=== PATIENT | male | born 1960 | race Caucasian/White ===

== ENCOUNTER 2020-03-18 06:20 | Inpatient (IN) | payer BC ==
--- NOTE | 2020-03-18 07:05 | EDM.PDOC ---
ED HPI GENERAL MEDICAL PROBLEM - General Chief Complaint: Gastrointestinal Problem Stated Complaint: blood in stool Time Seen by Provider: 03/18/20 07:03 Source of Information: Reports: Patient History Limitations: Reports: No Limitations - History of Present Illness INITIAL COMMENTS - FREE TEXT/NARRATIVE: 59-year-old male presents to the ED with chief complaint of passing bright red blood per rectum x4 starting about 20 to 30 hours last evening. Associated diffuse lower abdominal cramping pain. No associated fever chills nausea or vomiting. Patient takes Aleve on a weekly basis but usually only a total of 4 tablets. Does not take aspirin daily. He does not drink alcohol. No past history of GI bleeding. No past history of known colonic polyps. No history of diverticulitis. States the passage of bright red blood per rectum with a bit of maroon color to it x4. Each time was at least a handful of blood. He is feeling lightheaded and dizzy after bowel movements. He states he just gave 2 pints of blood a week ago through blood donation. He does have heartburn and does use Prilosec on a as needed basis and occasional Tums or Rolaids. Its been no worse as of late. No history of previous abdominal surgery and states he had a colonoscopy done about 4-1/2 years ago before his left knee total replacement by Dr. Luna. No polyps were removed Onset: Sudden Onset Date: 03/17/20 Onset Time: 22:30 Duration: Hour(s):, Intermittent Location: Reports: Abdomen ( gastrointestinal hemorrhage.) Quality: Reports: Other (mild lower abdominal cramping pain. ) Severity: Moderate Improves with: Reports: None Worsens with: Reports: None Context: Reports: Other (spontaneous occurrence. ). Denies: Activity, Exercise, Lifting, Sick Contact, Trauma Associated Symptoms: Reports: Malaise, Weakness, Other (mild lightheaded with standing. ). 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 ) Abdominal Pain Score (Numeric/FACES): 2 - Related Data Allergies Allergy/AdvReac Type Severity Reaction Status Date / Time No Known Allergies Allergy Verified 03/18/20 06:42 Home Meds: Home Meds Naproxen Sodium [Aleve] 220 mg PO TID PRN 03/18/20 [History] Omeprazole Magnesium [Prilosec Otc] 20 mg PO ASDIRECTED PRN 03/18/20 [History] Past Medical History HEENT History: Reports: Impaired Vision Cardiovascular History: Reports: None Respiratory History: Reports: None Gastrointestinal History: Reports: GERD Genitourinary History: Reports: None Musculoskeletal History: Reports: Arthritis Neurological History: Reports: None Psychiatric History: Reports: None Endocrine/Metabolic History: Reports: None Hematologic History: Reports: None Immunologic History: Reports: None Oncologic (Cancer) History: Reports: None Dermatologic History: Reports: None - Infectious Disease History Infectious Disease History: Reports: Chicken Pox, Influenza - Past Surgical History Head Surgeries/Procedures: Reports: None HEENT Surgical History: Reports: Oral Surgery Musculoskeletal Surgical History: Reports: Knee Replacement Other Musculoskeletal Surgeries/Procedures:: Left knee replace. Right knee surgery many years ago Social & Family History - Family History Family Medical History: No Pertinent Family History Cardiac: Reports: [place] Respiratory: Reports: None GI: Reports: None : Reports: None Musculoskeletal: Reports: Arthritis Neurological: Reports: None Psychiatric: Reports: None Endocrine/Metabolic: Reports: Diabetes, type II Hematologic: Reports: None Immunologic: Reports: None Dermatologic: Reports: None Oncologic: Reports: None - Tobacco Use Tobacco Use Status *Q: Never Tobacco User - Caffeine Use Caffeine Use: Reports: Coffee - Recreational Drug Use Recreational Drug Use: No - Living Situation & Occupation Living situation: Reports: Occupation: Employed ED ROS GENERAL - Review of Systems Review Of Systems: See Below Constitutional: Reports: Weakness, Fatigue. Denies: Fever, Chills, Malaise, Decreased Appetite, Weight Loss HEENT: Reports: No Symptoms Respiratory: Reports: No Symptoms Cardiovascular: Reports: No Symptoms Endocrine: Reports: No Symptoms GI/Abdominal: Reports: Bloody Stool ( starting last pm. ), Other (occassional GERD). Denies: Constipation, Diarrhea : Reports: No Symptoms Musculoskeletal: Reports: Back Pain, Joint Pain (Rt knee at times. ) Skin: Reports: No Symptoms Neurological: Reports: Dizziness ( with standing since bleeding per rectum started. ) Psychiatric: Reports: No Symptoms Hematologic/Lymphatic: Reports: No Symptoms Immunologic: Reports: No Symptoms ED EXAM, GI/ABD - Physical Exam Exam: See Below Exam Limited By: No Limitations General Appearance: Alert, WD/WN, Anxious, Mild Distress, Other ( pallid in color. ) Eyes: Bilateral: Normal Appearance ( moderate bilateral blepharal pallor. ) Throat/Mouth: Normal Inspection, Normal Lips, Normal Oropharynx, Other (tongue is white in color. ) Head: Atraumatic, Normocephalic Neck: Normal Inspection, Supple, Non-Tender, Full Range of Motion. No: Lymphadenopathy (L), Lymphadenopathy (R) Respiratory/Chest: No Respiratory Distress, Lungs Clear, Normal Breath Sounds, No Accessory Muscle Use Cardiovascular: Normal Peripheral Pulses, Regular Rate, Rhythm, No Edema, No Gallop, No Murmur, No Rub GI/Abdominal Exam: Normal Bowel Sounds, Soft, Non-Tender, No Organomegaly, Tender, Other (No surgical scars). No: Guarding (Minimally tender left lower quadrant of the abdomen), Rigid, Rebound ( no rebound or guarding) (Male) Exam: No Hernia Rectal (Males) Exam: Bloody Stool Back Exam: Normal Inspection, Full Range of Motion. No: CVA Tenderness (L), CVA Tenderness (R) Extremities: Normal Inspection, Normal Range of Motion, Non-Tender Neurological: Oriented, CN II-XII Intact, Normal Cognition Psychiatric: Normal Affect, Normal Mood Skin Exam: Warm, Dry, Intact, Pallor. No: Normal Color #1 Interpretation EKG Date: 03/18/20 Time: 07:27 Rhythm: NSR Rate (Beats/Min): 67 [place]: Normal P-Wave: Present QRS: Other (Early R wave transition consider right ventricular hypertrophy versus septal hypertrophy pattern. Likely underlying left ventricular hypertrophy.) ST-T: Other (Diffuse early R wave transition) QT: Normal EKG Interpretation Comments: Borderline ECG Course - Vital Signs Last Recorded V/S: Last Vital Signs Temp 36.1 C 03/18/20 06:47 Pulse 70 03/18/20 06:47 Resp 12 03/18/20 06:47 BP 128/90 03/18/20 06:47 Pulse Ox 99 03/18/20 06:47 Orthostatic Blood Pressure [ 106/51 Standing] Orthostatic Blood Pressure [ 110/56 Sitting] Orthostatic Blood Pressure [ 105/53 Supine] - Orders/Labs/Meds Orders: Active Orders 24 hr Category Date Time Status Orthostatic Vital Signs [RC] ASDIRECTED Care 03/18/20 07:03 Active H PYLORI STOOL ANTIGEN [MREF] Stat Lab 03/18/20 07:38 Ordered PACKED CELLS [RED BLOOD CELLS LP] [BBK] Stat Lab 03/18/20 06:47 Results TYPE AND SCREEN [BBK] Stat Lab 03/18/20 06:47 Results Dextrose 5%-0.9% NaCl [Dextrose 5%-Normal Saline] 1,000 Med 03/18/20 08:45 Active ml IV ASDIRECTED Sodium Chloride 0.9% [Normal Saline] 1,000 ml Med 03/18/20 07:15 Active IV ASDIRECTED Medication Orders Sodium Chloride (Normal Saline) 1,000 mls @ 999 mls/hr IV ASDIRECTED KAYLEIGH Last Admin: 03/18/20 07:23 Dose: 999 mls/hr Documented by: BELTRAN Dextrose/Sodium Chloride (Dextrose 5%-Normal Saline) 1,000 mls @ 150 mls/hr IV ASDIRECTED KAYLEIGH Last Admin: 03/18/20 08:49 Dose: 150 mls/hr Documented by: BELTRAN Labs: Laboratory Tests 03/18/20 03/18/20 03/18/20 Range/Units 06:47 06:47 06:47 WBC 8.06 (4.23-9.07) K/mm3 RBC 3.15 L (4.63-6.08) M/mm3 Hgb 9.4 L (13.7-17.5) gm/dl Hct 28.7 L (40.1-51.0) % MCV 91.1 (79.0-92.2) fl MCH 29.8 (25.7-32.2) pg MCHC 32.8 (32.2-35.5) g/dl RDW Std Deviation 42.2 (35.1-43.9) fL Plt Count 312 (163-337) K/mm3 MPV 11.0 (9.4-12.3) fl Neut % (Auto) 87.0 H (34.0-67.9) % Lymph % (Auto) 5.7 L (21.8-53.1) % [place] % (Auto) 5.5 (5.3-12.2) % Eos % (Auto) 1.4 (0.8-7.0) Baso % (Auto) 0.4 (0.1-1.2) % Neut # (Auto) 7.02 H (1.78-5.38) K/mm3 Lymph # (Auto) 0.46 L (1.32-3.57) K/mm3 [place] # (Auto) 0.44 (0.30-0.82) K/mm3 Eos # (Auto) 0.11 (0.04-0.54) K/mm3 Baso # (Auto) 0.03 (0.01-0.08) K/mm3 Manual Slide Review Abnormal smear PT 10.3 (9.7-12.0) SECONDS INR 0.96 APTT < 20.0 L (21.7-31.4) SECONDS Sodium (136-145) mEq/L Potassium (3.5-5.1) mEq/L Chloride (98-107) mEq/L Carbon Dioxide (21-32) mEq/L Anion Gap (5-15) BUN (7-18) mg/dL Creatinine (0.7-1.3) mg/dL Est Cr Clr Drug Dosing mL/min Estimated GFR (MDRD) (>60) mL/min BUN/Creatinine Ratio (14-18) Glucose (74-106) mg/dL Calcium (8.5-10.1) mg/dL Magnesium (1.8-2.4) mg/dl Total Bilirubin (0.2-1.0) mg/dL AST (15-37) U/L ALT (16-63) U/L Alkaline Phosphatase (46-116) U/L C-Reactive Protein (<1.0) mg/dL Total Protein (6.4-8.2) g/dl Albumin (3.4-5.0) g/dl Globulin gm/dL Albumin/Globulin Ratio (1-2) SARS-CoV-2 RNA (PILAR) (NEGATIVE) Blood Type O POSITIVE Gel Antibody Screen Negative Crossmatch See Detail 03/18/20 03/18/20 03/18/20 Range/Units 06:47 06:47 08:25 WBC (4.23-9.07) K/mm3 RBC (4.63-6.08) M/mm3 Hgb (13.7-17.5) gm/dl Hct (40.1-51.0) % MCV (79.0-92.2) fl MCH (25.7-32.2) pg MCHC (32.2-35.5) g/dl RDW Std Deviation (35.1-43.9) fL Plt Count (163-337) K/mm3 MPV (9.4-12.3) fl Neut % (Auto) (34.0-67.9) % Lymph % (Auto) (21.8-53.1) % [place] % (Auto) (5.3-12.2) % Eos % (Auto) (0.8-7.0) Baso % (Auto) (0.1-1.2) % Neut # (Auto) (1.78-5.38) K/mm3 Lymph # (Auto) (1.32-3.57) K/mm3 [place] # (Auto) (0.30-0.82) K/mm3 Eos # (Auto) (0.04-0.54) K/mm3 Baso # (Auto) (0.01-0.08) K/mm3 Manual Slide Review PT (9.7-12.0) SECONDS INR APTT (21.7-31.4) SECONDS Sodium 138 (136-145) mEq/L Potassium 4.2 (3.5-5.1) mEq/L Chloride 106 (98-107) mEq/L Carbon Dioxide 24 (21-32) mEq/L Anion Gap 12.2 (5-15) BUN 20 H (7-18) mg/dL Creatinine 1.2 (0.7-1.3) mg/dL Est Cr Clr Drug Dosing 67.10 mL/min Estimated GFR (MDRD) > 60 (>60) mL/min BUN/Creatinine Ratio 16.7 (14-18) Glucose 147 H (74-106) mg/dL Calcium 8.2 L (8.5-10.1) mg/dL Magnesium 1.7 L (1.8-2.4) mg/dl Total Bilirubin 0.2 (0.2-1.0) mg/dL AST 16 (15-37) U/L ALT 17 (16-63) U/L Alkaline Phosphatase 67 (46-116) U/L C-Reactive Protein 0.5 (<1.0) mg/dL Total Protein 6.3 L (6.4-8.2) g/dl Albumin 3.3 L (3.4-5.0) g/dl Globulin 3.0 gm/dL Albumin/Globulin Ratio 1.1 (1-2) SARS-CoV-2 RNA (PILAR) Positive H (NEGATIVE) Blood Type Gel Antibody Screen Crossmatch Meds: Medications Generic Name Dose Route Start Last Admin Trade Name Jamshid PRN Reason Stop Dose Admin Sodium Chloride 1,000 mls @ 999 mls/hr 03/18/20 07:15 03/18/20 07:23 Normal Saline IV 999 mls/hr ASDIRECTED KAYLEIGH Administration Dextrose/Sodium Chloride 1,000 mls @ 150 mls/hr 03/18/20 08:45 03/18/20 08:49 Dextrose 5%-Normal Saline IV 150 mls/hr ASDIRECTED KAYLEIGH Administration - Radiology Interpretation Free Text/Narrative:: 59-year-old male presents to the ED with spontaneous gastrointestinal hemorrhage of unclear origin. He states about 20 to 30 hours last evening he had diarrhea stool which contained a large amount of blood when he looked in the toilet. Large amount of blood with wiping. Overnight he is gone 3 more times with associated mild lower abdominal cramping pain also but bowel movements are pure blood and contained at least a handful each time. Blood is slightly maroon in color on the last bowel movement. History suggest likely coming from lower GI source. Has a history of GERD for which he takes Prilosec on a as needed basis. Aleve up to 4 5 tablets/week. Does not take aspirin or any other anticoagulants on a daily basis. No past history of GI bleeding. On assessment the patient is quite pallid in appearance with pale conjunctiva and tongue. It appears that he is going to need blood transfusion. He will be crossmatched for 2 units of packed RBCs. He has no contraindication for alevism reasons not to receive blood transfusion. - Re-Assessments/Exams Free Text/Narrative Re-Assessment/Exam: 03/18/20 08:52 chest x-ray is unremarkable with no consolidation no pleural effusion no pneumothorax no cardiomegaly. 03/18/20 08:53 Hematology reveals a normal white count at 8.06. There is a left shift with 87% neutrophils. Hemoglobin is 9.4 present with hematocrit of 28.7. MCV is 91.1. Platelet count 312,000 PT is 10.3 with an INR of 0.96. PTT is less than 20. Sodium 138 with a potassium of 4.2 chloride 106 with a bicarb of 24. Anion gap is 12.2 BUN is 20. Creatinine is 1.2 GFR is greater than 60. Glucose 147 with a calcium of 8.2 magnesium slightly low at 1.7. Liver function is normal.C-reactive protein 0.5 total protein 6.3 with an albumin fraction of 3.3. Will look for on-call surgeon for consultation as the patient needs to be admitted to hospital. 03/18/20 09:09 [address] have spoken with [address] Lu--call surgeon and he advised admitting the patient at this time. He will stay n.p.o. and on IV fluids and monitored while in hospital. Patient appraised of his laboratory findings at this time and no need for rushing into blood transfusion at this time. He is likely to drop his hemoglobin over the next several hours. He has had no further bloody stools since entering the hospital. 03/18/20 09:36 The patient is surprised he came back Covid 19+. He has 2 daughters who are in high school that are at home and are being homeschooled. No one has been symptomatic. 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 He has absolutely no symptoms other than perhaps very minimal cold symptoms. Departure - Departure Time of Disposition: 10:25 Disposition: Admitted As Inpatient 67 Condition: Fair Clinical Impression: COVID-19 determined by clinical diagnostic criteria Gastrointestinal hemorrhage Qualifiers: GI bleed type/associated pathology: unspecified gastrointestinal hemorrhage type Qualified Code(s): K92.2 - Gastrointestinal hemorrhage, unspecified - Discharge Information *PRESCRIPTION DRUG MONITORING PROGRAM REVIEWED*: Not Applicable *COPY OF PRESCRIPTION DRUG MONITORING REPORT IN PATIENT SHAILA: Not Applicable Sepsis Event Note (ED) - Evaluation Sepsis Screening Result: No Definite Risk - Focused Exam Vital Signs: Vital Signs Temp Pulse Resp BP Pulse Ox 03/18/20 06:47 36.1 C 70 12 128/90 99 - My Orders Last 24 Hours: My Active Orders 03/18/20 06:47 PACKED CELLS [RED BLOOD CELLS LP] [BBK] Stat TYPE AND SCREEN [BBK] Stat 03/18/20 07:03 Orthostatic Vital Signs [RC] ASDIRECTED 03/18/20 07:15 Sodium Chloride 0.9% [Normal Saline] 1,000 ml IV ASDIRECTED 03/18/20 07:38 H PYLORI STOOL ANTIGEN [MREF] Stat 03/18/20 08:45 Dextrose 5%-0.9% NaCl [Dextrose 5%-Normal Saline] 1,000 ml IV ASDIRECTED - Assessment/Plan Last 24 Hours: My Active Orders 03/18/20 06:47 PACKED CELLS [RED BLOOD CELLS LP] [BBK] Stat TYPE AND SCREEN [BBK] Stat 03/18/20 07:03 Orthostatic Vital Signs [RC] ASDIRECTED 03/18/20 07:15 Sodium Chloride 0.9% [Normal Saline] 1,000 ml IV ASDIRECTED 03/18/20 07:38 H PYLORI STOOL ANTIGEN [MREF] Stat 03/18/20 08:45 Dextrose 5%-0.9% NaCl [Dextrose 5%-Normal Saline] 1,000 ml IV ASDIRECTED
[2020-03-18] MEDS ORDERED: Sodium Chloride 0.9% 1,000 ML IV SCH (07:15)
[2020-03-18] MEDS ORDERED: Dextrose 5%-0.9% NaCl 1,000 ML IV SCH (08:45)
--- NOTE | 2020-03-18 08:45 | CR ---
PROCEDURE INFORMATION: Exam: XR Chest, 1 View Exam date and time: 03/18/2020 6:59 AM Age: 59 years old Clinical indication: Dyspnea; Additional info: GI hemorrhage, unspecified if questioning or confirmed hemorrhage TECHNIQUE: Imaging protocol: XR of the chest Views: 1 view. COMPARISON: No relevant prior studies available. FINDINGS: Lungs: Unremarkable. No consolidation. Pleural space: Unremarkable. No pleural effusion. No pneumothorax. Heart/Mediastinum: Unremarkable. No cardiomegaly. Bones/joints: Unremarkable. IMPRESSION: Normal chest. Thank you for allowing us to participate in the care of your patient. Dictated and Authenticated by: Rupal Zuniga MD 03/18/2020 9:36 AM Central Time ([place] & [place]) RASHIDA
--- NOTE | 2020-03-18 11:48 | PCM.HP.2 ---
H&P History of Present Illness - General Date of Service: 03/18/20 Admit Problem/Dx: Admission Diagnosis/Problem Admission Diagnosis/Problem Gastrointestinal hemorrhage Source of Information: Patient History Limitations: Reports: No Limitations - History of Present Illness Initial Comments - Free Text/Narative: Patient has a history of GERD. He noticed bright red blood per rectum last night at 2030. He had 4 episodes, 4th episode was early this AM. He became transiently lightheaded this AM prior to coming to the ED. No prior episodes. Hematochezia was associated with mild lower abdomen cramps but no pain. He has history of hemorrhoids and has noticed blood with wiping sometimes but nothing like this. Last colonoscopy was 4.5 yrs ago and was normal. Weight is stable. No other issues. In the ED Vitals were stable. Patient was pale. The Ed discussed with me and we admitted the patient for monitoring. Onset of Symptoms: Reports: Sudden Duration of Symptoms: Reports: Day(s): (1), Intermittent Location: Reports: Abdomen Quality: Reports: Other (cramp) Severity: Mild Improves with: Reports: None Worsens with: Reports: None Associated Symptoms: Reports: Other (hematochezia) Abdominal Pain Score (Numeric/FACES): 2 - Related Data Allergies/Adverse Reactions: Allergies Allergy/AdvReac Type Severity Reaction Status Date / Time No Known Allergies Allergy Verified 03/18/20 06:42 Home Medications: Home Meds Naproxen Sodium [Aleve] 220 mg PO TID PRN 03/18/20 [History] Omeprazole Magnesium [Prilosec Otc] 20 mg PO ASDIRECTED PRN 03/18/20 [History] Past Medical History HEENT History: Reports: Impaired Vision Cardiovascular History: Reports: None Respiratory History: Reports: None Gastrointestinal History: Reports: GERD Genitourinary History: Reports: None Musculoskeletal History: Reports: Arthritis Neurological History: Reports: None Psychiatric History: Reports: None Endocrine/Metabolic History: Reports: None Hematologic History: Reports: None Immunologic History: Reports: None Oncologic (Cancer) History: Reports: None Dermatologic History: Reports: None - Infectious Disease History Infectious Disease History: Reports: Chicken Pox, Influenza - Past Surgical History Head Surgeries/Procedures: Reports: None HEENT Surgical History: Reports: Oral Surgery Musculoskeletal Surgical History: Reports: Knee Replacement Other Musculoskeletal Surgeries/Procedures:: Left knee replace. Right knee surgery many years ago Social & Family History - Family History Family Medical History: No Pertinent Family History Cardiac: Reports: [place] Respiratory: Reports: None GI: Reports: None : Reports: None Musculoskeletal: Reports: Arthritis Neurological: Reports: None Psychiatric: Reports: None Endocrine/Metabolic: Reports: Diabetes, type II Hematologic: Reports: None Immunologic: Reports: None Dermatologic: Reports: None Oncologic: Reports: None - Tobacco Use Tobacco Use Status *Q: Former Tobacco User Years of Tobacco use: 20 Used Tobacco, but Quit: Yes Month/Year Tobacco Last Used: 20 Second Hand Smoke Exposure: No - Caffeine Use Caffeine Use: Reports: Coffee - Alcohol Use Days Per Week of Alcohol Use: 1 Number of Drinks Per Day: 1 Total Drinks Per Week: 1 Date of Last Drink: 03/04/20 Time of Last Drink: 19:00 - Recreational Drug Use Recreational Drug Use: No - Living Situation & Occupation Living situation: Reports: Occupation: Employed H&P Review of Systems - Review of Systems: Review Of Systems: See Below General: Reports: No Symptoms HEENT: Reports: No Symptoms Pulmonary: Reports: No Symptoms Cardiovascular: Reports: No Symptoms Gastrointestinal: Reports: Hematochezia Genitourinary: Reports: No Symptoms Musculoskeletal: Reports: No Symptoms Skin: Reports: No Symptoms Psychiatric: Reports: No Symptoms Neurological: Reports: No Symptoms Exam - Exam Exam: See Below - Vital Signs Vital Signs: Last Vital Signs Temp 99.0 F 03/18/20 10:54 Pulse 78 03/18/20 10:54 Resp 19 03/18/20 10:54 BP 124/90 03/18/20 10:54 Pulse Ox 100 03/18/20 10:54 Orthostatic Blood Pressure [ 106/51 Standing] Orthostatic Blood Pressure [ 110/56 Sitting] Orthostatic Blood Pressure [ 105/53 Supine] Weight: 81.221 kg - Exam General: Alert, Oriented, Cooperative Neck: Supple, Trachea Midline Lungs: Clear to Auscultation, Normal Respiratory Effort Cardiovascular: Regular Rate, Regular Rhythm, Normal S1, Normal S2 GI/Abdominal Exam: Soft, Non-Tender, No Organomegaly, No Distention, No Mass - Patient Data Lab Results Last 24 hrs: Laboratory Results - last 24 hr 03/18/20 03/18/20 03/18/20 Range/Units 06:47 06:47 06:47 WBC 8.06 (4.23-9.07) K/mm3 RBC 3.15 L (4.63-6.08) M/mm3 Hgb 9.4 L (13.7-17.5) gm/dl Hct 28.7 L (40.1-51.0) % MCV 91.1 (79.0-92.2) fl MCH 29.8 (25.7-32.2) pg MCHC 32.8 (32.2-35.5) g/dl RDW Std Deviation 42.2 (35.1-43.9) fL Plt Count 312 (163-337) K/mm3 MPV 11.0 (9.4-12.3) fl Neut % (Auto) 87.0 H (34.0-67.9) % Lymph % (Auto) 5.7 L (21.8-53.1) % [place] % (Auto) 5.5 (5.3-12.2) % Eos % (Auto) 1.4 (0.8-7.0) Baso % (Auto) 0.4 (0.1-1.2) % Neut # (Auto) 7.02 H (1.78-5.38) K/mm3 Lymph # (Auto) 0.46 L (1.32-3.57) K/mm3 [place] # (Auto) 0.44 (0.30-0.82) K/mm3 Eos # (Auto) 0.11 (0.04-0.54) K/mm3 Baso # (Auto) 0.03 (0.01-0.08) K/mm3 Manual Slide Review Abnormal smear PT 10.3 (9.7-12.0) SECONDS INR 0.96 APTT < 20.0 L (21.7-31.4) SECONDS Sodium (136-145) mEq/L Potassium (3.5-5.1) mEq/L Chloride (98-107) mEq/L Carbon Dioxide (21-32) mEq/L Anion Gap (5-15) BUN (7-18) mg/dL Creatinine (0.7-1.3) mg/dL Est Cr Clr Drug Dosing mL/min Estimated GFR (MDRD) (>60) mL/min BUN/Creatinine Ratio (14-18) Glucose (74-106) mg/dL Calcium (8.5-10.1) mg/dL Magnesium (1.8-2.4) mg/dl Total Bilirubin (0.2-1.0) mg/dL AST (15-37) U/L ALT (16-63) U/L Alkaline Phosphatase (46-116) U/L C-Reactive Protein (<1.0) mg/dL Total Protein (6.4-8.2) g/dl Albumin (3.4-5.0) g/dl Globulin gm/dL Albumin/Globulin Ratio (1-2) SARS-CoV-2 RNA (PILAR) (NEGATIVE) Blood Type O POSITIVE Gel Antibody Screen Negative Crossmatch See Detail 03/18/20 03/18/20 03/18/20 Range/Units 06:47 06:47 08:25 WBC (4.23-9.07) K/mm3 RBC (4.63-6.08) M/mm3 Hgb (13.7-17.5) gm/dl Hct (40.1-51.0) % MCV (79.0-92.2) fl MCH (25.7-32.2) pg MCHC (32.2-35.5) g/dl RDW Std Deviation (35.1-43.9) fL Plt Count (163-337) K/mm3 MPV (9.4-12.3) fl Neut % (Auto) (34.0-67.9) % Lymph % (Auto) (21.8-53.1) % [place] % (Auto) (5.3-12.2) % Eos % (Auto) (0.8-7.0) Baso % (Auto) (0.1-1.2) % Neut # (Auto) (1.78-5.38) K/mm3 Lymph # (Auto) (1.32-3.57) K/mm3 [place] # (Auto) (0.30-0.82) K/mm3 Eos # (Auto) (0.04-0.54) K/mm3 Baso # (Auto) (0.01-0.08) K/mm3 Manual Slide Review PT (9.7-12.0) SECONDS INR APTT (21.7-31.4) SECONDS Sodium 138 (136-145) mEq/L Potassium 4.2 (3.5-5.1) mEq/L Chloride 106 (98-107) mEq/L Carbon Dioxide 24 (21-32) mEq/L Anion Gap 12.2 (5-15) BUN 20 H (7-18) mg/dL Creatinine 1.2 (0.7-1.3) mg/dL Est Cr Clr Drug Dosing 67.10 mL/min Estimated GFR (MDRD) > 60 (>60) mL/min BUN/Creatinine Ratio 16.7 (14-18) Glucose 147 H (74-106) mg/dL Calcium 8.2 L (8.5-10.1) mg/dL Magnesium 1.7 L (1.8-2.4) mg/dl Total Bilirubin 0.2 (0.2-1.0) mg/dL AST 16 (15-37) U/L ALT 17 (16-63) U/L Alkaline Phosphatase 67 (46-116) U/L C-Reactive Protein 0.5 (<1.0) mg/dL Total Protein 6.3 L (6.4-8.2) g/dl Albumin 3.3 L (3.4-5.0) g/dl Globulin 3.0 gm/dL Albumin/Globulin Ratio 1.1 (1-2) SARS-CoV-2 RNA (PILAR) Positive H (NEGATIVE) Blood Type Gel Antibody Screen Crossmatch Result Diagrams: 03/18/20 06:47 03/18/20 06:47 Sepsis Event Note - Evaluation Sepsis Screening Result: No Definite Risk - Focused Exam Vital Signs: Vital Signs Temp Temp Pulse Pulse Resp BP BP 03/18/20 10:54 99.0 F 78 19 124/90 03/18/20 06:47 97.0 F 70 12 128/90 Pulse Ox 03/18/20 10:54 100 03/18/20 06:47 99 Problem List Initiated/Reviewed/Updated: No Orders Last 24hrs: Active Orders 24 hr Category Date Time Status Admission Status [Patient Status] [ADT] Routine ADT 03/18/20 09:34 Active Orthostatic Vital Signs [RC] ASDIRECTED Care 03/18/20 07:03 Active H PYLORI STOOL ANTIGEN [MREF] Stat Lab 03/18/20 07:38 Ordered PACKED CELLS [RED BLOOD CELLS LP] [BBK] Stat Lab 03/18/20 06:47 Results TYPE AND SCREEN [BBK] Stat Lab 03/18/20 06:47 Results Dextrose 5%-0.9% NaCl [Dextrose 5%-Normal Saline] 1,000 Med 03/18/20 08:45 Active ml IV ASDIRECTED Sodium Chloride 0.9% [Normal Saline] 1,000 ml Med 03/18/20 07:15 Active IV ASDIRECTED Medication Orders Sodium Chloride (Normal Saline) 1,000 mls @ 999 mls/hr IV ASDIRECTED [facility]AYLE[facility] Last Admin: 03/18/20 07:23 Dose: 999 mls/hr Documented by: BELTRAN Dextrose/Sodium Chloride (Dextrose 5%-Normal Saline) 1,000 mls @ 150 mls/hr IV ASDIRECTED [facility] Last Admin: 03/18/20 08:49 Dose: 150 mls/hr Documented by: BELTRAN Assessment/Plan Comment:: Patient has hematochezia. Vitals are stable. - Ok to have ice chips. - IVF - Q6H H/H - NPO at Midnight - Prep today with Golitely - Plan for EGD/Colonoscopy, possible hemorrhoid banding tomorrow 03/19/2020 at 0800. We discussed risks, benefits and alternatives for the procedure. Patient is COvid-19 positive but asymptomatic. Precautions will be taken.
[2020-03-18] MEDS ORDERED: Ondansetron 4 MG/2 ML SDV IV PRN (11:49)
[2020-03-18] MEDS ORDERED: Pantoprazole 40 MG in Sodium Chloride 0.9% 100 ML IV SCH (12:00)
[2020-03-18] MEDS: Lactated Ringers 1,000 ML IV SCH ×2 (12:35→21:03)
[2020-03-18] MEDS: Pantoprazole 40 MG Vial IV SCH ×2 (12:39→21:04)
[2020-03-18] MEDS ORDERED: Polyethylene Glycol/Electrolytes 4,000 ML Bottle PO ONE (17:00)
[2020-03-19] MEDS: Lactated Ringers 1,000 ML IV SCH ×2 (05:15→11:31)
[2020-03-19] MEDS ORDERED: Propofol 200 MG/20 ML SDV ONE ×2 (07:37→08:50)
[2020-03-19] MEDS ORDERED: fentaNYL 100 MCG/2 ML SDV ONE (07:37)
[2020-03-19] MEDS ORDERED: Lidocaine 1% 4 ML ONE (07:40)
--- NOTE | 2020-03-19 08:38 | PCM.PREANE ---
Preanesthetic Assessment - Procedure Proposed Procedure: EGD and Colonoscopy - Anesthesia/Transfusion/Family Hx Anesthesia History: Prior Anesthesia Without Reaction Transfusion History: No Prior Transfusion(s) - Review of Systems General: No Symptoms Pulmonary: No Symptoms Cardiovascular: No Symptoms Gastrointestinal: No Symptoms Neurological: No Symptoms Other: Reports: None - Physical Assessment NPO Status Date: 03/18/20 NPO Status Time: 02:30 Vital Signs: Last Vital Signs Temp 100.0 F 03/19/20 05:17 Pulse 87 03/19/20 05:17 Resp 16 03/19/20 05:17 BP 147/72 H 03/19/20 05:17 Pulse Ox 95 03/19/20 05:17 Orthostatic Blood Pressure [ 106/51 Standing] Orthostatic Blood Pressure [ 110/56 Sitting] Orthostatic Blood Pressure [ 105/53 Supine] Height: 1.7 m Weight: 81.284 kg ASA Class: 2 Mental Status: Alert & Oriented x3 Airway Class: Mallampati = 3 Dentition: Reports: Normal Dentition Thyro-Mental Finger Breadths: 3 Mouth Opening Finger Breadths: 3 ROM/Head Extension: Full Lungs: Clear to Auscultation, Normal Respiratory Effort Cardiovascular: Regular Rate, Regular Rhythm - Lab Values: Laboratory Last Values WBC 3.24 K/mm3 (4.23-9.07) L 03/19/20 05:33 RBC 2.57 M/mm3 (4.63-6.08) L 03/19/20 05:33 Hgb 7.8 gm/dl (13.7-17.5) L 03/19/20 05:33 Hct 23.5 % (40.1-51.0) L 03/19/20 05:33 MCV 91.4 fl (79.0-92.2) 03/19/20 05:33 MCH 30.4 pg (25.7-32.2) 03/19/20 05:33 MCHC 33.2 g/dl (32.2-35.5) 03/19/20 05:33 RDW Std Deviation 43.0 fL (35.1-43.9) 03/19/20 05:33 Plt Count 211 K/mm3 (163-337) D 03/19/20 05:33 MPV 11.8 fl (9.4-12.3) 03/19/20 05:33 Neut % (Auto) 87.0 % (34.0-67.9) H 03/18/20 06:47 Lymph % (Auto) 5.7 % (21.8-53.1) L 03/18/20 06:47 [place] % (Auto) 5.5 % (5.3-12.2) 03/18/20 06:47 Eos % (Auto) 1.4 (0.8-7.0) 03/18/20 06:47 Baso % (Auto) 0.4 % (0.1-1.2) 03/18/20 06:47 Neut # (Auto) 7.02 K/mm3 (1.78-5.38) H 03/18/20 06:47 Lymph # (Auto) 0.46 K/mm3 (1.32-3.57) L 03/18/20 06:47 [place] # (Auto) 0.44 K/mm3 (0.30-0.82) 03/18/20 06:47 Eos # (Auto) 0.11 K/mm3 (0.04-0.54) 03/18/20 06:47 Baso # (Auto) 0.03 K/mm3 (0.01-0.08) 03/18/20 06:47 Manual Slide Review Abnormal smear 03/18/20 06:47 PT 10.3 SECONDS (9.7-12.0) 03/18/20 06:47 INR 0.96 03/18/20 06:47 APTT < 20.0 SECONDS (21.7-31.4) L 03/18/20 06:47 Sodium 138 mEq/L (136-145) 03/18/20 06:47 Potassium 4.2 mEq/L (3.5-5.1) 03/18/20 06:47 Chloride 106 mEq/L (98-107) 03/18/20 06:47 Carbon Dioxide 24 mEq/L (21-32) 03/18/20 06:47 Anion Gap 12.2 (5-15) 03/18/20 06:47 BUN 20 mg/dL (7-18) H 03/18/20 06:47 Creatinine 1.2 mg/dL (0.7-1.3) 03/18/20 06:47 Est Cr Clr Drug Dosing 67.10 mL/min 03/18/20 06:47 Estimated GFR (MDRD) > 60 mL/min (>60) 03/18/20 06:47 BUN/Creatinine Ratio 16.7 (14-18) 03/18/20 06:47 Glucose 147 mg/dL (74-106) H 03/18/20 06:47 Calcium 8.2 mg/dL (8.5-10.1) L 03/18/20 06:47 Magnesium 1.7 mg/dl (1.8-2.4) L 03/18/20 06:47 Total Bilirubin 0.2 mg/dL (0.2-1.0) 03/18/20 06:47 AST 16 U/L (15-37) 03/18/20 06:47 ALT 17 U/L (16-63) 03/18/20 06:47 Alkaline Phosphatase 67 U/L (46-116) 03/18/20 06:47 C-Reactive Protein 0.5 mg/dL (<1.0) 03/18/20 06:47 Total Protein 6.3 g/dl (6.4-8.2) L 03/18/20 06:47 Albumin 3.3 g/dl (3.4-5.0) L 03/18/20 06:47 Globulin 3.0 gm/dL 03/18/20 06:47 Albumin/Globulin Ratio 1.1 (1-2) 03/18/20 06:47 SARS-CoV-2 RNA (PILAR) Positive (NEGATIVE) H 03/18/20 08:25 Blood Type O POSITIVE 03/18/20 06:47 Gel Antibody Screen Negative 03/18/20 06:47 Crossmatch See Detail 03/18/20 06:47 - Allergies Allergies/Adverse Reactions: Allergies Allergy/AdvReac Type Severity Reaction Status Date / Time No Known Allergies Allergy Verified 03/18/20 06:42 - Acknowledgements Anesthesia Type Planned: MAC Pt an Appropriate Candidate for the Planned Anesthesia: Yes Alternatives and Risks of Anesthesia Discussed w Pt/Guardian: Yes Pt/Guardian Understands and Agrees with Anesthesia Plan: Yes PreAnesthesia Questionnaire HEENT History: Reports: None Cardiovascular History: Reports: None Respiratory History: Reports: None Gastrointestinal History: Reports: GERD Genitourinary History: Reports: None Musculoskeletal History: Reports: Arthritis Neurological History: Reports: None Psychiatric History: Reports: None Endocrine/Metabolic History: Reports: None Hematologic History: Reports: None Immunologic History: Reports: None Oncologic (Cancer) History: Reports: None Dermatologic History: Reports: None - Infectious Disease History Infectious Disease History: Reports: Chicken Pox, Influenza - Past Surgical History Head Surgeries/Procedures: Reports: None HEENT Surgical History: Reports: Oral Surgery Musculoskeletal Surgical History: Reports: Knee Replacement Other Musculoskeletal Surgeries/Procedures:: Left knee replace. Right knee surgery many years ago - SUBSTANCE USE Tobacco Use Status *Q: Former Tobacco User Tobacco Use Within Last Twelve Months: No Second Hand Smoke Exposure: No Days Per Week of Alcohol Use: 1 Number of Drinks Per Day: 1 Total Drinks Per Week: 1 Date of Last Drink: 03/04/20 Time of Last Drink: 19:00 Recreational Drug Use History: No - HOME MEDS Home Medications: Home Meds Naproxen Sodium [Aleve] 220 mg PO TID PRN 03/18/20 [History] Omeprazole Magnesium [Prilosec Otc] 20 mg PO ASDIRECTED PRN 03/18/20 [History] - CURRENT (IN HOUSE) MEDS Current Meds: Current Medications Sodium Chloride (Normal Saline) 1,000 mls @ 999 mls/hr IV ASDIRECTED [facility] Last Admin: 03/18/20 07:23 Dose: 999 mls/hr Documented by: Lactated Ringer's (Ringers, Lactated) 1,000 mls @ 125 mls/hr IV ASDIRECTED [facility] Last Admin: 03/19/20 05:15 Dose: 125 mls/hr Documented by: Ondansetron HCl (Zofran) 4 mg IV Q4H PRN PRN Reason: Nausea/Vomiting Pantoprazole Sodium (Protonix Iv) 40 mg IV BID [facility] Last Admin: 03/18/20 21:04 Dose: 40 mg Documented by: Discontinued Medications Fentanyl (Sublimaze) Confirm Administered Dose 100 mcg .ROUTE .STK-MED ONE Stop: 03/19/20 07:38 Dextrose/Sodium Chloride (Dextrose 5%-Normal Saline) 1,000 mls @ 150 mls/hr IV ASDIRECTED [facility] Last Admin: 03/18/20 08:49 Dose: 150 mls/hr Documented by: Pantoprazole Sodium 40 mg/ (Sodium Chloride) 100 mls @ 200 mls/hr IV BID [facility] Last Admin: 03/18/20 15:19 Dose: Not Given Documented by: Lidocaine HCl (Xylocaine-Mpf 1%) Confirm Administered Dose 4 mls @ as directed .ROUTE .STK-MED ONE Stop: 03/19/20 07:41 Polyethylene Glycol/Electrolytes (Golytely) 4,000 ml PO ONETIME ONE Stop: 03/18/20 17:01 Last Admin: 03/18/20 18:06 Dose: 4,000 ml Documented by: Propofol (Diprivan 20 Ml) Confirm Administered Dose 600 mg .ROUTE .STK-MED ONE Stop: 03/19/20 07:38
--- NOTE | 2020-03-19 09:41 | PCM48HPAN ---
Post Anesthesia Note - EVALUATION WITHIN 48HRS OF ANESTHETIC Vital Signs in Normal Range: Yes Patient Participated in Evaluation: Yes Respiratory Function Stable: Yes Airway Patent: Yes Cardiovascular Function Stable: Yes Hydration Status Stable: Yes Pain Control Satisfactory: Yes Nausea and Vomiting Control Satisfactory: Yes Mental Status Recovered: Yes Vital Signs: Last Vital Signs Temp 100.0 F 03/19/20 05:17 Pulse 87 03/19/20 05:17 Resp 16 03/19/20 05:17 BP 147/72 H 03/19/20 05:17 Pulse Ox 95 03/19/20 05:17 Orthostatic Blood Pressure [ 106/51 Standing] Orthostatic Blood Pressure [ 110/56 Sitting] Orthostatic Blood Pressure [ 105/53 Supine] Post Procedure VSs @09:27: 143/50, HR 76, RR 20, SpO2 100%, T=99.9F
--- NOTE | 2020-03-19 09:50 | PROC ---
DATE OF OPERATION: 03/19/2020 SURGEON: Destin Lu MD PREOPERATIVE DIAGNOSIS: Gastrointestinal bleed. POSTOPERATIVE DIAGNOSES: 1. Mild esophagitis. 2. Small and large diverticulosis. 3. Grade 3 hemorrhoids 4. 4 mm sigmoid colon polyp. Removed. OPERATION PERFORMED: 1. Esophagogastroduodenoscopy. 2. Colonoscopy. 3. Hemorrhoid banding. ANESTHESIA: Monitored anesthesia care. COMPLICATIONS: None. ESTIMATED BLOOD LOSS: Minimal. INDICATION AND CONSENT: The patient is a 59-year-old male who presented to the emergency department after several episodes of bright red blood per rectum. The patient remained stable in the ED. The patient was seen and admitted for monitoring. I saw the patient and recommended proceeding with EGD and colonoscopy. The patient underwent a prep overnight, and we will proceed with colonoscopy and EGD this morning. We discussed risks, benefits, and alternatives, and informed consent was obtained. DESCRIPTION OF PROCEDURE: The patient was taken to the procedure room and placed in the left lateral decubitus position. Monitored anesthesia care was induced. Then, we began the procedure by starting with an EGD after performing a time-out. EGD was placed into the mouth and taken all the way to the second portion of the duodenum. Duodenum was normal. Stomach was normal. There was no hiatal hernia. There was mild esophagitis without any stigmata of bleeding. The entire esophagus was normal. No biopsies were taken here. Air was suctioned out and procedure concluded. Then, we began with colonoscopy. There were grade III hemorrhoids on perianal exam and digital rectal exam. We proceeded with a colonoscopy. Scope was inserted and taken all the way to the cecum. Appendiceal orifice, ileocecal valve, and terminal ileum were photographed. Terminal ileum was intubated. It was normal. The ascending colon was normal. Transverse colon was normal. Descending colon was normal. Sigmoid had numerous small and large-mouth diverticulosis, some plugged up with stool. There was at least one diverticulosis that appeared to have stigmata of recent bleed indicated by a small amount of fresh clot, but no other clots were found in the rest of the examined diverticula. On retroflexion in the rectum, there were hemorrhoids that were irritated, but they were not actively bleeding. Therefore, we decided to proceed with hemorrhoid banding. At this point, the air was suctioned off the colon, and colonoscopy was concluded. On conclusion of colonoscopy, we proceeded with hemorrhoid banding. The anoscope was inserted. Hemorrhoids were isolated. There were large hemorrhoids complex in the right posterior position and right anterior position. Both of these were banded. Left lateral complex was normal appearing.There was a slow ooze at the end of the banding. Anoscope were removed, and the procedure was concluded. Then, the patient was awoken and taken back to the room for further recovery. At this point, I believe the patient may have bled likely from the diverticulosis and less likely from the hemorrhoids. We are going to continue to monitor the patient today and possibly discharge the patient tomorrow if blood levels remain normal and no other episodes of bleeding. WILLIAMS /[id number] RASHIDA
--- NOTE | 2020-03-19 10:14 | PCM.PN ---
- General Info Date of Service: 03/19/20 Admission Dx/Problem (Free Text): Admission Diagnosis/Problem Admission Diagnosis/Problem Gastrointestinal hemorrhage Subjective Update: Doing well. Had some blood with prep initially but it became clear. Functional Status: Reports: Pain Controlled Pain Score: 0 - Review of Systems General: Reports: No Symptoms HEENT: Reports: No Symptoms Pulmonary: Reports: No Symptoms Cardiovascular: Reports: No Symptoms Gastrointestinal: Reports: No Symptoms Genitourinary: Reports: No Symptoms Musculoskeletal: Reports: No Symptoms Skin: Reports: No Symptoms Neurological: Reports: No Symptoms Psychiatric: Reports: No Symptoms - Patient Data Vitals - Most Recent: Last Vital Signs Temp 100.0 F 03/19/20 05:17 Pulse 87 03/19/20 05:17 Resp 16 03/19/20 05:17 BP 147/72 H 03/19/20 05:17 Pulse Ox 95 03/19/20 05:17 Orthostatic Blood Pressure [ 106/51 Standing] Orthostatic Blood Pressure [ 110/56 Sitting] Orthostatic Blood Pressure [ 105/53 Supine] Weight - Most Recent: 81.284 kg I&O - Last 24 Hours: Intake & Output 03/18/20 03/19/20 03/19/20 22:59 06:59 14:59 Intake Total 1000 1500 Output Total 300 1400 Balance 700 100 Lab Results Last 24 Hours: Laboratory Results - last 24 hr 03/18/20 03/18/20 03/19/20 Range/Units 14:40 20:38 02:04 WBC (4.23-9.07) K/mm3 RBC (4.63-6.08) M/mm3 Hgb 9.6 L 9.2 L 7.8 L (13.7-17.5) gm/dl Hct 29.3 L 27.4 L 23.9 L (40.1-51.0) % MCV (79.0-92.2) fl MCH (25.7-32.2) pg MCHC (32.2-35.5) g/dl RDW Std Deviation (35.1-43.9) fL Plt Count (163-337) K/mm3 MPV (9.4-12.3) fl 03/19/20 Range/Units 05:33 WBC 3.24 L (4.23-9.07) K/mm3 RBC 2.57 L (4.63-6.08) M/mm3 Hgb 7.8 L (13.7-17.5) gm/dl Hct 23.5 L (40.1-51.0) % MCV 91.4 (79.0-92.2) fl MCH 30.4 (25.7-32.2) pg MCHC 33.2 (32.2-35.5) g/dl RDW Std Deviation 43.0 (35.1-43.9) fL Plt Count 211 D (163-337) K/mm3 MPV 11.8 (9.4-12.3) fl Ricardo Results Last 24 Hours: Microbiology 03/18/20 21:20 Helicobacter pylori Antigen - Final Stool / Feces NEGATIVE [facility] REFERENCE RANGE: NEGATIVE Med Orders - Current: Current Medications Sodium Chloride (Normal Saline) 1,000 mls @ 999 mls/hr IV ASDIRECTED [facility] Last Admin: 03/18/20 07:23 Dose: 999 mls/hr Documented by: Lactated Ringer's (Ringers, Lactated) 1,000 mls @ 125 mls/hr IV ASDIRECTED [facility] Last Admin: 03/19/20 05:15 Dose: 125 mls/hr Documented by: Ondansetron HCl (Zofran) 4 mg IV Q4H PRN PRN Reason: Nausea/Vomiting Pantoprazole Sodium (Protonix Iv) 40 mg IV BID [facility] Last Admin: 03/18/20 21:04 Dose: 40 mg Documented by: Discontinued Medications Fentanyl (Sublimaze) Confirm Administered Dose 100 mcg .ROUTE .STK-MED ONE Stop: 03/19/20 07:38 Dextrose/Sodium Chloride (Dextrose 5%-Normal Saline) 1,000 mls @ 150 mls/hr IV ASDIRECTED [facility] Last Admin: 03/18/20 08:49 Dose: 150 mls/hr Documented by: Pantoprazole Sodium 40 mg/ (Sodium Chloride) 100 mls @ 200 mls/hr IV BID [facility] Last Admin: 03/18/20 15:19 Dose: Not Given Documented by: Lidocaine HCl (Xylocaine-Mpf 1%) Confirm Administered Dose 4 mls @ as directed .ROUTE .STK-MED ONE Stop: 03/19/20 07:41 Polyethylene Glycol/Electrolytes (Golytely) 4,000 ml PO ONETIME ONE Stop: 03/18/20 17:01 Last Admin: 03/18/20 18:06 Dose: 4,000 ml Documented by: Propofol (Diprivan 20 Ml) Confirm Administered Dose 600 mg .ROUTE .STK-MED ONE Stop: 03/19/20 07:38 Propofol (Diprivan 20 Ml) Confirm Administered Dose 200 mg .ROUTE .STK-MED ONE Stop: 03/19/20 08:51 - Exam General: Alert, Oriented, Cooperative Lungs: Clear to Auscultation, Normal Respiratory Effort Cardiovascular: Regular Rate, Regular Rhythm, No Murmurs GI/Abdominal Exam: Soft, Non-Tender, No Organomegaly, No Distention, No Abnormal Bruit Sepsis Event Note - Evaluation Sepsis Screening Result: No Definite Risk - Focused Exam Vital Signs: Vital Signs Temp Pulse Resp BP Pulse Ox 03/19/20 05:17 100.0 F 87 16 147/72 H 95 03/19/20 01:22 100.6 F 95 18 149/56 H 95 - Problem List Review Problem List Initiated/Reviewed/Updated: No - My Orders Last 24 Hours: My Active Orders 03/18/20 11:49 Patient Status [ADT] Routine Oxygen Therapy [RC] PRN VTE/DVT Education [RC] PER UNIT ROUTINE Vital Signs [RC] Q4HR Ondansetron [Zofran] 4 mg IV Q4H PRN VTE Pharmacological Contraindications [AST] Per Unit Routine Resuscitation Status Routine 03/18/20 12:00 Lactated Ringers [Ringers, Lactated] 1,000 ml IV ASDIRECTED 03/18/20 12:30 Pantoprazole [ProTONIX IV] 40 mg IV BID 03/18/20 Dinner Nothing per Oral After Midnight Diet [DIET] 03/19/20 08:03 Schedule Procedure [COMM] Routine - Assessment Assessment:: Patient had GI bleeding. Now s/p EGD/COlonoscopy. EGD was normal. COlonoscopy showed one 4 mm polyp in sigmoid colon. Numerous diverticuli and grade III hemorrhoid. One diverticuli had small fresh clot. Hemorrhoids banded x 2. Bleeding could have been from diverticuli or hemorrhoid. - Ok to have clear liquids now - recheck Hgb at now, and at 6 pm. If these are stable, then pt can have regular diet and IVF lock - COvid-19 precautions - Tylenol for pain due to hemorrhoid banding Anticipate discharge to home tomorrow if Hgb remains stable. - Plan Plan:: Patient has hematochezia. Vitals are stable. - Ok to have ice chips. - IVF - Q6H H/H - NPO at Midnight - Prep today with Golitely - Plan for EGD/Colonoscopy, possible hemorrhoid banding tomorrow 03/19/2020 at 0800. We discussed risks, benefits and alternatives for the procedure. Patient is COvid-19 positive but asymptomatic. Precautions will be taken.
[2020-03-19] MEDS: Pantoprazole 40 MG Vial IV SCH ×2 (10:15→20:47)
[2020-03-19] MEDS: Acetaminophen 325 MG Tab PO PRN (15:19)
[2020-03-20] MEDS: Acetaminophen 325 MG Tab PO PRN ×2 (01:19→12:56)
[2020-03-20] MEDS: Pantoprazole 40 MG Vial IV SCH ×2 (08:48→21:13)
[2020-03-20] MEDS: Lactated Ringers 1,000 ML IV SCH ×2 (09:57→21:13)
--- NOTE | 2020-03-20 14:36 | PCM.PN ---
- General Info Date of Service: 03/20/20 Admission Dx/Problem (Free Text): GI bleeding Subjective Update: Patient continued to pass bloody bowel movements today. He had 2 bloody BMs. I saw one, dark blood. Blood levels have appear to be around 7.8 Vitals are stable. Functional Status: Reports: Pain Controlled, Tolerating Diet, Ambulating - Review of Systems General: Reports: No Symptoms HEENT: Reports: No Symptoms Pulmonary: Reports: No Symptoms Cardiovascular: Reports: No Symptoms Gastrointestinal: Reports: Hematochezia Genitourinary: Reports: No Symptoms Musculoskeletal: Reports: No Symptoms Skin: Reports: No Symptoms Neurological: Reports: No Symptoms Psychiatric: Reports: No Symptoms - Patient Data Vitals - Most Recent: Last Vital Signs Temp 100.0 F 03/20/20 12:56 Pulse 85 03/20/20 12:55 Resp 16 03/20/20 12:55 BP 104/60 03/20/20 12:55 Pulse Ox 98 03/20/20 12:55 Orthostatic Blood Pressure [ 106/51 Standing] Orthostatic Blood Pressure [ 110/56 Sitting] Orthostatic Blood Pressure [ 105/53 Supine] Weight - Most Recent: 80.921 kg I&O - Last 24 Hours: Intake & Output 03/19/20 03/20/20 03/20/20 22:59 06:59 14:59 Intake Total 2740 750 Output Total 2100 Balance 640 750 Lab Results Last 24 Hours: Laboratory Results - last 24 hr 03/20/20 03/20/20 03/20/20 Range/Units 06:45 06:45 12:20 WBC 3.95 L (4.23-9.07) K/mm3 RBC 2.60 L (4.63-6.08) M/mm3 Hgb 7.6 L 7.8 L (13.7-17.5) gm/dl Hct 24.0 L 24.1 L (40.1-51.0) % MCV 92.3 H (79.0-92.2) fl MCH 29.2 (25.7-32.2) pg MCHC 31.7 L (32.2-35.5) g/dl RDW Std Deviation 42.7 (35.1-43.9) fL Plt Count 230 (163-337) K/mm3 MPV 10.6 (9.4-12.3) fl Neut % (Auto) 61.7 (34.0-67.9) % Lymph % (Auto) 21.3 L (21.8-53.1) % [place] % (Auto) 16.2 H (5.3-12.2) % Eos % (Auto) 0.5 L (0.8-7.0) Baso % (Auto) 0.3 (0.1-1.2) % Neut # (Auto) 2.44 (1.78-5.38) K/mm3 Lymph # (Auto) 0.84 L (1.32-3.57) K/mm3 [place] # (Auto) 0.64 (0.30-0.82) K/mm3 Eos # (Auto) 0.02 L (0.04-0.54) K/mm3 Baso # (Auto) 0.01 (0.01-0.08) K/mm3 Manual Slide Review Abnormal smear Sodium 142 (136-145) mEq/L Potassium 3.8 (3.5-5.1) mEq/L Chloride 108 H (98-107) mEq/L Carbon Dioxide 26 (21-32) mEq/L Anion Gap 11.8 (5-15) BUN 13 (7-18) mg/dL Creatinine 1.2 (0.7-1.3) mg/dL Est Cr Clr Drug Dosing 62.73 mL/min Estimated GFR (MDRD) > 60 (>60) mL/min BUN/Creatinine Ratio 10.8 L (14-18) Glucose 103 (74-106) mg/dL Calcium 8.0 L (8.5-10.1) mg/dL Ricardo Results Last 24 Hours: Microbiology 03/19/20 15:15 Anaerobic Blood Culture - Final Blood - Venous 03/19/20 15:00 Anaerobic Blood Culture - Final Blood - Venous - Lab Draw Med Orders - Current: Current Medications Acetaminophen (Tylenol) 650 mg PO Q6H PRN PRN Reason: Fever Last Admin: 03/20/20 12:56 Dose: 650 mg Documented by: Lactated Ringer's (Ringers, Lactated) 1,000 mls @ 100 mls/hr IV ASDIRECTED [facility] Last Admin: 03/20/20 09:57 Dose: 100 mls/hr Documented by: Ondansetron HCl (Zofran) 4 mg IV Q4H PRN PRN Reason: Nausea/Vomiting Pantoprazole Sodium (Protonix Iv) 40 mg IV BID [facility] Last Admin: 03/20/20 08:48 Dose: 40 mg Documented by: Discontinued Medications Fentanyl (Sublimaze) Confirm Administered Dose 100 mcg .ROUTE .STK-MED ONE Stop: 03/19/20 07:38 Sodium Chloride (Normal Saline) 1,000 mls @ 999 mls/hr IV ASDIRECTED [facility] Last Admin: 03/18/20 07:23 Dose: 999 mls/hr Documented by: Dextrose/Sodium Chloride (Dextrose 5%-Normal Saline) 1,000 mls @ 150 mls/hr IV [facility]IRECTED [facility] Last Admin: 03/18/20 08:49 Dose: 150 mls/hr Documented by: Lactated Ringer's (Ringers, Lactated) [facility],000 [facility] Admin: 03/19/20 11:31 Dose: 125 mls/hr Documented by: Pantoprazole Sodium 40 mg/ (Sodium Chloride) 100 mls @ 200 mls/hr IV BID [facility] Last Admin: 03/18/20 15:19 Dose: Not Given Documented by: Lidocaine HCl (Xylocaine-Mpf 1%) Confirm Administered Dose 4 mls @ as directed .ROUTE .STK-MED ONE Stop: 03/19/20 07:41 Polyethylene Glycol/Electrolytes (Golytely) 4,000 ml PO ONETIME ONE Stop: 03/18/20 17:01 Last Admin: 03/18/20 18:06 Dose: 4,000 ml Documented by: Propofol (Diprivan 20 Ml) Confirm Administered Dose 600 mg .ROUTE .STK-MED ONE Stop: 03/19/20 07:38 Propofol (Diprivan 20 Ml) Confirm Administered Dose 200 mg .ROUTE .STK-MED ONE Stop: 03/19/20 08:51 - Exam General: Alert, Oriented, Cooperative Lungs: Clear to Auscultation, Normal Respiratory Effort Cardiovascular: Regular Rate, Regular Rhythm GI/Abdominal Exam: Soft, Non-Tender, No Organomegaly, No Distention, No Abnormal Bruit Sepsis Event Note - Evaluation Sepsis Screening Result: No Definite Risk - Focused Exam Vital Signs: Vital Signs Temp Pulse Resp BP Pulse Ox 03/20/20 12:56 100.0 F 03/20/20 12:55 100.0 F 85 16 104/60 98 03/20/20 08:47 99.7 F 82 16 116/63 96 03/20/20 08:27 98.1 F 88 16 148/58 H 100 03/20/20 04:06 99.7 F 85 16 139/65 96 - Problem List Review Problem List Initiated/Reviewed/Updated: No - My Orders Last 24 Hours: My Active Orders 03/19/20 14:44 Blood Culture x2 Reflex Set [OM.PC] Stat 03/19/20 14:45 Acetaminophen [TylenoL] 650 mg PO Q6H PRN 03/19/20 15:00 CULTURE BLOOD [BC] Stat 03/19/20 15:15 CULTURE BLOOD [BC] Stat 03/20/20 09:15 Lactated Ringers [Ringers, Lactated] 1,000 ml IV ASDIRECTED 03/20/20 Lunch NPO [Nothing Per Oral Diet] [DIET] 03/20/20 13:40 Schedule Procedure [COMM] Urgent - Assessment Assessment:: Patient had GI bleeding. Now s/p EGD/COlonoscopy. EGD was normal. COlonoscopy showed one 4 mm polyp in sigmoid colon. Numerous diverticuli and grade III hemorrhoid. One diverticuli had small fresh clot. Hemorrhoids banded x 2. Bleeding could have been from diverticuli or hemorrhoid. Today, he continues to bleed. It could be from the recently banded hemorrhoid vs rebleeding diverticulosis vs other. - Plan Plan:: - Due to persistent bleeding, we will go back to the OR for Sigmoidoscopy, possible EUA and hemorrhoidectomy depending on the likely source of bleeding. I discussed this with the patient. Patient is also tired to blood draws as he has had multiple attempts. We will see if we can get a midline catheter or CVC placed if necessary. I discussed risks, benefits and alternatives with the patient and informed consent was obtained. Patient is currently NPO with IVF. Further plans will be pending the procedure results.
[2020-03-20] MEDS ORDERED: Ketamine 500 mg/10 ML MDV ONE (15:38)
[2020-03-20] MEDS ORDERED: Propofol 200 MG/20 ML SDV ONE ×5 (15:38→18:04)
[2020-03-20] MEDS ORDERED: fentaNYL 100 MCG/2 ML SDV ONE (15:41)
[2020-03-20] MEDS ORDERED: Lidocaine 1% 4 ML ONE (15:47)
[2020-03-20] MEDS ORDERED: Midazolam 1 MG/ML 2 ML SDV ONE ×2 (15:48→18:49)
--- NOTE | 2020-03-20 16:05 | PCM.PREANE ---
Preanesthetic Assessment - Procedure Proposed Procedure: Colonoscopy - Anesthesia/Transfusion/Family Hx Anesthesia History: Prior Anesthesia Without Reaction Transfusion History: No Prior Transfusion(s) - Review of Systems General: No Symptoms Pulmonary: No Symptoms Cardiovascular: No Symptoms Gastrointestinal: No Symptoms Neurological: No Symptoms Other: Reports: None - Physical Assessment NPO Status Date: 03/18/20 NPO Status Time: 02:30 Vital Signs: Last Vital Signs Temp 99.4 F 03/20/20 14:00 Pulse 85 03/20/20 12:55 Resp 16 03/20/20 12:55 BP 104/60 03/20/20 12:55 Pulse Ox 98 03/20/20 12:55 Orthostatic Blood Pressure [ 106/51 Standing] Orthostatic Blood Pressure [ 110/56 Sitting] Orthostatic Blood Pressure [ 105/53 Supine] Height: 1.7 m Weight: 80.921 kg ASA Class: 2E Mental Status: Alert & Oriented x3 Airway Class: Mallampati = 3 Dentition: Reports: Normal Dentition Thyro-Mental Finger Breadths: 3 Mouth Opening Finger Breadths: 3 ROM/Head Extension: Full Lungs: Clear to Auscultation, Normal Respiratory Effort Cardiovascular: Regular Rate, Regular Rhythm - Lab Values: Laboratory Last Values WBC 3.95 K/mm3 (4.23-9.07) L 03/20/20 06:45 RBC 2.60 M/mm3 (4.63-6.08) L 03/20/20 06:45 Hgb 7.8 gm/dl (13.7-17.5) L 03/20/20 12:20 Hct 24.1 % (40.1-51.0) L 03/20/20 12:20 MCV 92.3 fl (79.0-92.2) H 03/20/20 06:45 MCH 29.2 pg (25.7-32.2) 03/20/20 06:45 MCHC 31.7 g/dl (32.2-35.5) L 03/20/20 06:45 RDW Std Deviation 42.7 fL (35.1-43.9) 03/20/20 06:45 Plt Count 230 K/mm3 (163-337) 03/20/20 06:45 MPV 10.6 fl (9.4-12.3) 03/20/20 06:45 Neut % (Auto) 61.7 % (34.0-67.9) 03/20/20 06:45 Lymph % (Auto) 21.3 % (21.8-53.1) L 03/20/20 06:45 [place] % (Auto) 16.2 % (5.3-12.2) H 03/20/20 06:45 Eos % (Auto) 0.5 (0.8-7.0) L 03/20/20 06:45 Baso % (Auto) 0.3 % (0.1-1.2) 03/20/20 06:45 Neut # (Auto) 2.44 K/mm3 (1.78-5.38) 03/20/20 06:45 Lymph # (Auto) 0.84 K/mm3 (1.32-3.57) L 03/20/20 06:45 [place] # (Auto) 0.64 K/mm3 (0.30-0.82) 03/20/20 06:45 Eos # (Auto) 0.02 K/mm3 (0.04-0.54) L 03/20/20 06:45 Baso # (Auto) 0.01 K/mm3 (0.01-0.08) 03/20/20 06:45 Manual Slide Review Abnormal smear 03/20/20 06:45 PT 10.3 SECONDS (9.7-12.0) 03/18/20 06:47 INR 0.96 03/18/20 06:47 APTT < 20.0 SECONDS (21.7-31.4) L 03/18/20 06:47 Sodium 142 mEq/L (136-145) 03/20/20 06:45 Potassium 3.8 mEq/L (3.5-5.1) 03/20/20 06:45 Chloride 108 mEq/L (98-107) H 03/20/20 06:45 Carbon Dioxide 26 mEq/L (21-32) 03/20/20 06:45 Anion Gap 11.8 (5-15) 03/20/20 06:45 BUN 13 mg/dL (7-18) 03/20/20 06:45 Creatinine 1.2 mg/dL (0.7-1.3) 03/20/20 06:45 Est Cr Clr Drug Dosing 62.73 mL/min 03/20/20 06:45 Estimated GFR (MDRD) > 60 mL/min (>60) 03/20/20 06:45 BUN/Creatinine Ratio 10.8 (14-18) L 03/20/20 06:45 Glucose 103 mg/dL (74-106) 03/20/20 06:45 Calcium 8.0 mg/dL (8.5-10.1) L 03/20/20 06:45 Magnesium 1.7 mg/dl (1.8-2.4) L 03/18/20 06:47 Total Bilirubin 0.2 mg/dL (0.2-1.0) 03/18/20 06:47 AST 16 U/L (15-37) 03/18/20 06:47 ALT 17 U/L (16-63) 03/18/20 06:47 Alkaline Phosphatase 67 U/L (46-116) 03/18/20 06:47 C-Reactive Protein 0.5 mg/dL (<1.0) 03/18/20 06:47 Total Protein 6.3 g/dl (6.4-8.2) L 03/18/20 06:47 Albumin 3.3 g/dl (3.4-5.0) L 03/18/20 06:47 Globulin 3.0 gm/dL 03/18/20 06:47 Albumin/Globulin Ratio 1.1 (1-2) 03/18/20 06:47 SARS-CoV-2 RNA (PILAR) Positive (NEGATIVE) H 03/18/20 08:25 Blood Type O POSITIVE 03/18/20 06:47 Gel Antibody Screen Negative 03/18/20 06:47 Crossmatch See Detail 03/18/20 06:47 - Allergies Allergies/Adverse Reactions: Allergies Allergy/AdvReac Type Severity Reaction Status Date / Time No Known Allergies Allergy Verified 03/18/20 06:42 - Acknowledgements Anesthesia Type Planned: General Anesthesia, MAC Pt an Appropriate Candidate for the Planned Anesthesia: Yes Alternatives and Risks of Anesthesia Discussed w Pt/Guardian: Yes Pt/Guardian Understands and Agrees with Anesthesia Plan: Yes PreAnesthesia Questionnaire HEENT History: Reports: None Cardiovascular History: Reports: None Respiratory History: Reports: None Gastrointestinal History: Reports: GERD Genitourinary History: Reports: None Musculoskeletal History: Reports: Arthritis Neurological History: Reports: None Psychiatric History: Reports: None Endocrine/Metabolic History: Reports: None Hematologic History: Reports: None Immunologic History: Reports: None Oncologic (Cancer) History: Reports: None Dermatologic History: Reports: None - Infectious Disease History Infectious Disease History: Reports: Chicken Pox, Influenza - Past Surgical History Head Surgeries/Procedures: Reports: None HEENT Surgical History: Reports: Oral Surgery Musculoskeletal Surgical History: Reports: Knee Replacement Other Musculoskeletal Surgeries/Procedures:: Left knee replace. Right knee surgery many years ago - SUBSTANCE USE Tobacco Use Status *Q: Former Tobacco User Tobacco Use Within Last Twelve Months: No Second Hand Smoke Exposure: No Days Per Week of Alcohol Use: 1 Number of Drinks Per Day: 1 Total Drinks Per Week: 1 Date of Last Drink: 03/04/20 Time of Last Drink: 19:00 Recreational Drug Use History: No - HOME MEDS Home Medications: Home Meds Naproxen Sodium [Aleve] 220 mg PO TID PRN 03/18/20 [History] Omeprazole Magnesium [Prilosec Otc] 20 mg PO ASDIRECTED PRN 03/18/20 [History] - CURRENT (IN HOUSE) MEDS Current Meds: Current Medications Acetaminophen (Tylenol) 650 mg PO Q6H PRN PRN Reason: Fever Last Admin: 03/20/20 12:56 Dose: 650 mg Documented by: Lactated Ringer's (Ringers, Lactated) 1,000 mls @ 100 mls/hr IV ASDIRECTED [facility] Last Admin: 03/20/20 09:57 Dose: 100 mls/hr Documented by: Ondansetron HCl (Zofran) 4 mg IV Q4H PRN PRN Reason: Nausea/Vomiting Pantoprazole Sodium (Protonix Iv) 40 mg IV BID [facility] Last Admin: 03/20/20 08:48 Dose: 40 mg Documented by: Discontinued Medications Fentanyl (Sublimaze) Confirm Administered Dose 100 mcg .ROUTE .STK-MED ONE Stop: 03/19/20 07:38 Fentanyl (Sublimaze) Confirm Administered Dose 100 mcg .ROUTE .K-MED ONE Stop: 03/20/20 15:42 Sodium Chloride (Normal Saline) 1,000 mls @ 999 mls/hr IV ASDIRECTED [facility] Last Admin: 03/18/20 07:23 Dose: 999 mls/hr Documented by: Dextrose/Sodium Chloride (Dextrose 5%-Normal Saline) 1,000 mls @ 150 mls/hr IV ASDIRECTED [facility] Last Admin: 03/18/20 08:49 Dose: 150 mls/hr Documented by: Lactated Ringer's (Ringers, Lactated) 1,000 mls @ 125 mls/hr IV ASDIRECTED [facility] Last Admin: 03/19/20 11:31 Dose: 125 mls/hr Documented by: Pantoprazole Sodium 40 mg/ (Sodium Chloride) 100 mls @ 200 mls/hr IV BID [facility] Last Admin: 03/18/20 15:19 Dose: Not Given Documented by: Lidocaine HCl (Xylocaine-Mpf 1%) Confirm Administered Dose 4 mls @ as directed .ROUTE .STK-MED ONE Stop: 03/19/20 07:41 Lidocaine HCl (Xylocaine-Mpf 1%) Confirm Administered Dose 4 mls @ as directed .ROUTE .STK-MED ONE Stop: 03/20/20 15:48 Ketamine HCl (Ketalar) Confirm Administered Dose 500 mg .ROUTE .STK-MED ONE Stop: 03/20/20 15:39 Midazolam HCl (Versed 1 Mg/Ml) Confirm Administered Dose 4 mg .ROUTE .STK-MED ONE Stop: 03/20/20 15:49 Miscellaneous Medication (Phenylephrine 1 Mg/10 Ml-Ns) Confirm Administered Dose 1 mg .ROUTE .STK-MED ONE Stop: 03/20/20 15:56 Polyethylene Glycol/Electrolytes (Golytely) 4,000 ml PO ONETIME ONE Stop: 03/18/20 17:01 Last Admin: 03/18/20 18:06 Dose: 4,000 ml Documented by: Propofol (Diprivan 20 Ml) Confirm Administered Dose 600 mg .ROUTE .STK-MED ONE Stop: 03/19/20 07:38 Propofol (Diprivan 20 Ml) Confirm Administered Dose 200 mg .ROUTE .STK-MED ONE Stop: 03/19/20 08:51 Propofol (Diprivan 20 Ml) Confirm Administered Dose 400 mg .ROUTE .STK-MED ONE Stop: 03/20/20 15:39
[2020-03-20] MEDS ORDERED: Lactated Ringers 1,000 ML ONE (16:45)
[2020-03-20] MEDS ORDERED: EPINEPHrine 1 MG/ML SDV ONE (17:32)
--- NOTE | 2020-03-20 18:39 | PCM.SN.2 ---
- Free Text/Narrative Note: Patient underwent a colonoscopy today. Diverticular bleeding noted, very slow. Multiple areas were injected with epinephrine. - We will continue H/H monitoring - Will transfuse if Hgb < 7.0
--- NOTE | 2020-03-20 18:48 | PROC ---
DATE OF OPERATION: 03/20/2020 SURGEON: Destin Lu MD PREOPERATIVE DIAGNOSIS: Persistent hematochezia. POSTOPERATIVE DIAGNOSIS: Diverticular bleeding. OPERATION PERFORMED: Colonoscopy and examination under anesthesia. ESTIMATED BLOOD LOSS: From the procedure is minimal. ANESTHESIA: Monitored anesthesia care. COMPLICATIONS: None. INDICATION AND CONSENT: The patient is a 59-year-old male who presented with hematochezia. The patient underwent EGD and colonoscopy. EGD was normal, and colonoscopy was normal except for diverticular bleeding stigmata, one polyp and large hemorrhoids that were irritated. Hemorrhoids were banded. This was done yesterday. The patient was monitored and happened to have recurrent hematochezia. Therefore, I talked to the patient and recommended a repeat colonoscopy. I have recommended EUA, sigmoidoscopy, possible hemorrhoidectomy due to the concern for bleeding from hemorrhoid bands. The patient agreed to proceed with the procedure. Informed consent was obtained. DETAILS OF PROCEDURE: The patient was taken to the operating room, and placed on the operating to the room table. The patient was appropriately padded. Monitored anesthesia care was induced. Time-out was performed. I began the procedure. We began the procedure with EUA. A scope was inserted into the rectum. There was immediate expression of old dark blood from the rectum. Then, the anorectal mucosa was examined. There was no active pulsatile bleeding, although it was difficult to rule out venous bleed due to copious amount of old blood coming out. Then, scope was placed, and with copious irrigation it was taken all the way to the cecum. There was significant amount of stool in the colon, but this did not prevent the exam from being undertaken safely. The cecum was photographed, and the terminal ileum was intubated. The terminal ileum seemed normal. There was no stigmata of bleeding in the terminal ileum. The cecum was normal. No stigmata of bleeding in the cecum. There was no stigmata of bleeding in the entire ascending colon until the proximal transverse colon. In the mid transverse colon, there was melena, but no red blood. Copious irrigation was performed. There was no area of active bleeding that was identified. We took our scope slowly. I examined the mucosa. There was increasingly more red blood as we went distally in the descending colon, there was red old blood in this area. In the sigmoid colon there was copious amount of red blood with clots. We used copious irrigation again to examine the diverticulum in detail. There were multiple diverticula that seemed to have bled. It was not clear initially whether or not the blood in the diverticula was due to hemorrhage proximally or was from the bleeding from there, but there were several diverticula that appeared to have very slow ooze or fresh clots. We continued to examine the diverticula, and the exam kept being consistent with some diverticula that showed concern for slow ooze without any pulsatile bleeding. Then in the rectum, we did see the 2 bands that were intact. There was no oozing or bleeding around the bands. At this time, then we decided to go back and treat the diverticular bleeding with epinephrine and clips. We went back to the sigmoid colon and found areas of diverticula that showed some oozing, and we injected epinephrine in multiple diverticula. A total of 60 mL of 1:200,000 epinephrine were injected. There was no immediate complication. There was no active bleeding. One of the diverticulum seemed to be a little more active in oozing, one Endoclip was applied successfully. Once the injection was done, air was suctioned out and exam was concluded. The patient will get awoken up and taken back to the room. Patient will continue to be monitored in the hospital. WILLIAMS /[id number] RASHIDA
--- NOTE | 2020-03-20 20:53 | PCM.POSTAN ---
POST ANESTHESIA ASSESSMENT - MENTAL STATUS Mental Status: Confused - VITAL SIGNS Vital Signs: Last Vital Signs Temp 99.4 F 03/20/20 14:00 Pulse 85 03/20/20 12:55 Resp 16 03/20/20 12:55 BP 104/60 03/20/20 12:55 Pulse Ox 98 03/20/20 12:55 Orthostatic Blood Pressure [ 106/51 Standing] Orthostatic Blood Pressure [ 110/56 Sitting] Orthostatic Blood Pressure [ 105/53 Supine] Post procedure VSs at 1905 on the floor BP: 140/92 RR 16 HR 96 SpO2 96 on 2L T 98F - RESPIRATORY Respiratory Status: Respiratory Rate WNL, Airway Patent, O2 Saturation Stable, Supplemental Oxygen - CARDIOVASCULAR CV Status: Pulse Rate WNL, Blood Pressure Stable - GASTROINTESTINAL GI Status: No Symptoms - PAIN Pain Score: 0 - POST OP HYDRATION Hydration Status: Adequate & Stable
--- NOTE | 2020-03-20 20:56 | PCM48HPAN ---
Post Anesthesia Note - EVALUATION WITHIN 48HRS OF ANESTHETIC Vital Signs in Normal Range: Yes Patient Participated in Evaluation: Yes Respiratory Function Stable: Yes Airway Patent: Yes Cardiovascular Function Stable: Yes Hydration Status Stable: Yes Pain Control Satisfactory: Yes Nausea and Vomiting Control Satisfactory: Yes Mental Status Recovered: Yes (still somewhat sleepy, but easily arousable and responds appropriately) Vital Signs: Last Vital Signs Temp 99.4 F 03/20/20 14:00 Pulse 85 03/20/20 12:55 Resp 16 03/20/20 12:55 BP 104/60 03/20/20 12:55 Pulse Ox 98 03/20/20 12:55 Orthostatic Blood Pressure [ 106/51 Standing] Orthostatic Blood Pressure [ 110/56 Sitting] Orthostatic Blood Pressure [ 105/53 Supine] - COMMENTS/OBSERVATIONS Free Text/Narrative:: Patient had post-anesthesia delirious reaction. I stayed with him in room 19 on [facility] floor until he became alert and oriented.
--- NOTE | 2020-03-20 20:59 | PCM.SN.2 ---
- Free Text/Narrative Note: Hgb is 7.0. Patient had active colonic bleeding per recent colonoscopy. As long as vitals are stable ie no hypotension or tachycardia, we will monitor him and recheck CBC in the AM. I discussed this plan with the RN. Fern NPO for now and IVF.
--- NOTE | 2020-03-20 21:16 | PCM.PRNOTE ---
- Free Text/Narrative Note: Ultrasound guided peripheral IV start Requested by Dr. Rosey Lu to start a designated IV line for frequent blood lluvia ws. Left upper arm was prepped by Chloraprep , brachial vein was identified, x2 attempts, successful insertion of 1.88" 20G catheter. Blood drawn for the lab. Easy flush and blood draw confirmed. Catheter secured. Instructions given to RASHEED Jacinto, to use this IV for lab draws ONLY, with 2-3 ml of space draw prior to sample collection and 10 ml NS flush after the draw. Another 20G regular valved IV catheter was also placed under U/S guidance at left lower forearm, easy flush confirmed. Start 1999 End 2029 Osmany Rea CRNA
[2020-03-21] MEDS: Lactated Ringers 1,000 ML IV SCH ×2 (07:41→16:25)
[2020-03-21] MEDS ORDERED: Sodium Chloride 0.9% 250 ML IV SCH (08:00)
[2020-03-21] MEDS: Pantoprazole 40 MG Vial IV SCH ×2 (09:06→21:47)
[2020-03-21] MEDS: Acetaminophen 325 MG Tab PO PRN ×2 (09:08→16:25)
--- NOTE | 2020-03-21 11:14 | PCM.PN ---
- General Info Date of Service: 03/21/20 Admission Dx/Problem (Free Text): GI bleeding Subjective Update: has headache, no bowel movement overnight. Hgb dropped to 6.4 this AM. Feels tired. Functional Status: Reports: Urinating - Review of Systems General: Reports: No Symptoms HEENT: Reports: No Symptoms Pulmonary: Reports: No Symptoms Cardiovascular: Reports: No Symptoms Gastrointestinal: Reports: No Symptoms Genitourinary: Reports: No Symptoms Musculoskeletal: Reports: No Symptoms Skin: Reports: No Symptoms Neurological: Reports: No Symptoms - Patient Data Vitals - Most Recent: Last Vital Signs Temp 99.7 F 03/21/20 09:19 Pulse 68 03/21/20 09:19 Resp 20 03/21/20 09:19 BP 128/63 03/21/20 09:19 Pulse Ox 93 L 03/21/20 09:19 Orthostatic Blood Pressure [ 106/51 Standing] Orthostatic Blood Pressure [ 110/56 Sitting] Orthostatic Blood Pressure [ 105/53 Supine] Weight - Most Recent: 80.739 kg I&O - Last 24 Hours: Intake & Output 03/20/20 03/21/20 03/21/20 22:59 06:59 14:59 Intake Total 400 0 0 Output Total 300 1250 Balance 100 -1250 0 Lab Results Last 24 Hours: Laboratory Results - last 24 hr 03/18/20 03/18/20 03/20/20 Range/Units 06:47 07:56 12:20 WBC (4.23-9.07) K/mm3 RBC (4.63-6.08) M/mm3 Hgb 7.8 L (13.7-17.5) gm/dl Hct 24.1 L (40.1-51.0) % MCV (79.0-92.2) fl MCH (25.7-32.2) pg MCHC (32.2-35.5) g/dl RDW Std Deviation (35.1-43.9) fL Plt Count (163-337) K/mm3 MPV (9.4-12.3) fl Neut % (Auto) (34.0-67.9) % Lymph % (Auto) (21.8-53.1) % [place] % (Auto) (5.3-12.2) % Eos % (Auto) (0.8-7.0) Baso % (Auto) (0.1-1.2) % Neut # (Auto) (1.78-5.38) K/mm3 Lymph # (Auto) (1.32-3.57) K/mm3 [place] # (Auto) (0.30-0.82) K/mm3 Eos # (Auto) (0.04-0.54) K/mm3 Baso # (Auto) (0.01-0.08) K/mm3 Manual Slide Review Sodium (136-145) mEq/L Potassium (3.5-5.1) mEq/L Chloride (98-107) mEq/L Carbon Dioxide (21-32) mEq/L Anion Gap (5-15) BUN (7-18) mg/dL Creatinine (0.7-1.3) mg/dL Est Cr Clr Drug Dosing mL/min Estimated GFR (MDRD) (>60) mL/min BUN/Creatinine Ratio (14-18) Glucose (74-106) mg/dL Calcium (8.5-10.1) mg/dL Blood Type O POSITIVE Gel Antibody Screen Negative Crossmatch See Detail See Detail 03/20/20 03/21/20 03/21/20 Range/Units 19:59 05:16 05:16 WBC 7.81 (4.23-9.07) K/mm3 RBC 2.15 L (4.63-6.08) M/mm3 Hgb 7.0 L* 6.4 L* (13.7-17.5) gm/dl Hct 21.5 L 19.7 L (40.1-51.0) % MCV 91.6 (79.0-92.2) fl MCH 29.8 (25.7-32.2) pg MCHC 32.5 (32.2-35.5) g/dl RDW Std Deviation 41.3 (35.1-43.9) fL Plt Count 217 (163-337) K/mm3 MPV 11.0 (9.4-12.3) fl Neut % (Auto) 84.3 H (34.0-67.9) % Lymph % (Auto) 9.7 L (21.8-53.1) % [place] % (Auto) 6.0 (5.3-12.2) % Eos % (Auto) 0 L (0.8-7.0) Baso % (Auto) 0.0 L (0.1-1.2) % Neut # (Auto) 6.58 H (1.78-5.38) K/mm3 Lymph # (Auto) 0.76 L (1.32-3.57) K/mm3 [place] # (Auto) 0.47 (0.30-0.82) K/mm3 Eos # (Auto) 0.00 L (0.04-0.54) K/mm3 Baso # (Auto) 0.00 L (0.01-0.08) K/mm3 Manual Slide Review Abnormal smear Sodium 138 (136-145) mEq/L Potassium 3.4 L (3.5-5.1) mEq/L Chloride 104 (98-107) mEq/L Carbon Dioxide 24 (21-32) mEq/L Anion Gap 13.4 (5-15) BUN 13 (7-18) mg/dL Creatinine 1.2 (0.7-1.3) mg/dL Est Cr Clr Drug Dosing 62.73 mL/min Estimated GFR (MDRD) > 60 (>60) mL/min BUN/Creatinine Ratio 10.8 L (14-18) Glucose 116 H (74-106) mg/dL Calcium 7.6 L (8.5-10.1) mg/dL Blood Type Gel Antibody Screen Crossmatch Ricardo Results Last 24 Hours: Microbiology 03/19/20 15:00 Aerobic Blood Culture - Preliminary Blood - Venous - Lab Draw NO GROWTH AFTER 1 DAY Anaerobic Blood Culture - Final 03/19/20 15:15 Aerobic Blood Culture - Preliminary Blood - Venous NO GROWTH AFTER 1 DAY Anaerobic Blood Culture - Final Med Orders - Current: Current Medications Acetaminophen (Tylenol) 650 mg PO Q6H PRN PRN Reason: Fever Last Admin: 03/21/20 09:08 Dose: 650 mg Documented by: Lactated Ringer's (Ringers, Lactated) 1,000 mls @ 100 mls/hr IV ASDIRECTED [facility] Last Admin: 03/21/20 07:41 Dose: 100 mls/hr Documented by: Sodium Chloride (Normal Saline) 250 mls @ 100 mls/hr IV ASDIRECTED [facility] Potassium Chloride 10 meq/ (Premix) 100 mls @ 100 mls/hr IV Q1H [facility] Stop: 03/21/20 14:29 Ondansetron HCl (Zofran) 4 mg IV Q4H PRN PRN Reason: Nausea/Vomiting Pantoprazole Sodium (Protonix Iv) 40 mg IV BID [facility] Last Admin: 03/21/20 09:06 Dose: 40 mg Documented by: Discontinued Medications Epinephrine HCl (Adrenalin) Confirm Administered Dose 1 mg .ROUTE .K-MED ONE Stop: 03/20/20 17:33 Last Admin: 03/20/20 17:47 Dose: 3 mg Documented by: Fentanyl (Sublimaze) Confirm Administered Dose 100 mcg .ROUTE .STK-MED ONE Stop: 03/19/20 07:38 Fentanyl (Sublimaze) Confirm Administered Dose 100 mcg .ROUTE .K-MED ONE Stop: 03/20/20 15:42 Glycopyrrolate (Robinul) Confirm Administered Dose 0.4 mg .ROUTE .K-MED ONE Stop: 03/20/20 16:12 Sodium Chloride (Normal Saline) 1,000 mls @ [facility] Admin: 03/18/20 07:23 Dose: 999 mls/hr Documented by: Dextrose/Sodium Chloride (Dextrose 5%-Normal Saline) 1,000 mls @ 150 [facility] Last Admin: 03/18/20 08:49 Dose: 150 mls/hr Documented by: Lactated Ringer's (Ringers, Lactated) 1,000 mls @ 125 [facility]ls[facility] Last Admin: 03/19/20 11:31 Dose: 125 mls/hr Documented by: Pantoprazole Sodium 40 mg/ (Sodium Chloride) 100 mls @ 200 mls/hr IV BID [facility] Last Admin: 03/18/20 15:19 Dose: Not Given Documented by: Lidocaine HCl (Xylocaine-Mpf 1%) Confirm Administered Dose 4 mls @ as directed .ROUTE .K-MED ONE Stop: 03/19/20 07:41 Lidocaine HCl (Xylocaine-Mpf 1%) Confirm Administered Dose 4 mls @ as directed .ROUTE .STK-MED ONE Stop: 03/20/20 15:48 Lactated Ringer's (Ringers, Lactated) Confirm Administered Dose 1,000 mls @ as directed .ROUTE .K-MED ONE Stop: 03/20/20 16:46 Ketamine HCl (Ketalar) Confirm Administered Dose 500 mg .ROUTE .STK-MED ONE Stop: 03/20/20 15:39 Midazolam HCl (Versed 1 Mg/Ml) Confirm Administered Dose 4 mg .ROUTE .STK-MED ONE Stop: 03/20/20 15:49 Midazolam HCl (Versed 1 Mg/Ml) Confirm Administered Dose 2 mg .ROUTE .STK-MED ONE Stop: 03/20/20 18:50 Miscellaneous Medication (Phenylephrine 1 Mg/10 Ml-Ns) Confirm Administered Dose 1 mg .ROUTE .STK-MED ONE Stop: 03/20/20 15:56 Polyethylene Glycol/Electrolytes (Golytely) 4,000 ml PO ONETIME ONE Stop: 03/18/20 17:01 Last Admin: 03/18/20 18:06 Dose: 4,000 ml Documented by: Propofol (Diprivan 20 Ml) Confirm Administered Dose 600 mg .ROUTE .STK-MED ONE Stop: 03/19/20 07:38 Propofol (Diprivan 20 Ml) Confirm Administered Dose 200 mg .ROUTE .STK-MED ONE Stop: 03/19/20 08:51 Propofol (Diprivan 20 Ml) Confirm Administered Dose 400 mg .ROUTE .STK-MED ONE Stop: 03/20/20 15:39 Propofol (Diprivan 20 Ml) Confirm Administered Dose 200 mg .ROUTE .STK-MED ONE Stop: 03/20/20 16:25 Propofol (Diprivan 20 Ml) Confirm Administered Dose 200 mg .ROUTE .STK-MED ONE Stop: 03/20/20 16:41 Propofol (Diprivan 20 Ml) Confirm Administered Dose 200 mg .ROUTE .STK-MED ONE Stop: 03/20/20 17:37 Propofol (Diprivan 20 Ml) Confirm Administered Dose 200 mg .ROUTE .STK-MED ONE Stop: 03/20/20 18:05 - Exam General: Alert, Oriented, Cooperative Lungs: Clear to Auscultation, Normal Respiratory Effort Cardiovascular: Regular Rate, Regular Rhythm, No Murmurs GI/Abdominal Exam: Soft, Non-Tender, No Organomegaly, No Distention Sepsis Event Note - Evaluation Sepsis Screening Result: No Definite Risk - Focused Exam Vital Signs: Vital Signs Temp Temp Temp Pulse Pulse Resp BP 03/21/20 09:19 99.7 F 68 20 03/21/20 09:08 101.9 F H 03/21/20 08:55 101.8 F H 98 98 20 156/68 H 03/21/20 07:49 98.2 F 98 16 141/60 H 03/21/20 06:00 99.2 F 03/21/20 05:17 100.2 F 96 14 140/67 03/21/20 00:00 99.6 F 91 12 BP Pulse Ox 03/21/20 09:19 128/63 93 L 03/21/20 09:08 03/21/20 08:55 156/68 H 95 03/21/20 07:49 94 L 03/21/20 06:00 03/21/20 05:17 93 L 03/21/20 00:00 128/68 94 L - Problem List Review Problem List Initiated/Reviewed/Updated: No - My Orders Last 24 Hours: My Active Orders 03/20/20 13:40 Schedule Procedure [COMM] Urgent 03/21/20 06:33 Transfuse PRBC [Transfuse Red Blood Cells] [COMM] Routine 03/21/20 Breakfast NPO [Nothing Per Oral Diet] [DIET] 03/21/20 08:00 Sodium Chloride 0.9% [Normal Saline] 250 ml IV ASDIRECTED 03/21/20 10:30 Potassium Chloride [KCl 10 MEQ in Water 100 ML] 10 meq Premix Bag 1 bag IV Q1H 03/21/20 10:47 Antiembolic Devices [RC] PER UNIT ROUTINE SCD [Sequential Compression Device] [OM.PC] Routine 03/21/20 10:48 Telemetry Monitoring [Cardiac Monitoring] [RC] . DIRECTED Pulse Oximetry Continuous Monitoring [OM.PC] Routine 03/22/20 05:11 CBC WITH AUTO DIFF [HEME] AM 03/23/20 05:11 CBC WITH AUTO DIFF [HEME] AM - Assessment Assessment:: Patient had GI bleeding. Now s/p EGD/Colonoscopy 03/19. EGD was normal. Colonos copy showed one 4 mm polyp in sigmoid colon. Numerous diverticuli and grade III hemorrhoid. One diverticuli had small fresh clot. Hemorrhoids banded x 2. Patient had re-bleeding with Hgb drop from 9 to 7.8, repeat colonoscopy 03/20 showed intact non-bleeding hemorrhoid bands and diverticular bleeding. Epinephrine injected and endoclip applied. - Plan Plan:: - Continue NPO with IVF - Transfuse 2U PRBCs and recheck Hgb. - Will continue to monitor H/H frequently - Placed the patient on Telemetry and pulse ox - Will continue to monitor BMs - If bleeding continues, will obtain a CTA a/p as a next step.
[2020-03-21] MEDS: Potassium Chloride 10 MEQ in Premix Bag 1 BAG IV SCH ×4 (12:10→16:27)
--- NOTE | 2020-03-21 18:34 | PCM.SN.2 ---
- Free Text/Narrative Note: After 2 units, Hgb is up to 8.8 from 6.4. Vitals are stable. Will continue to monitor him overnight as we are currently doing. Will check CBC and BMP + Phos and Mag at 5 am. Pt can have some ice chips overnight. Pt refused Telemetry, we will discontinue it. I discussed this plan with the RN, Ze.
[2020-03-22] MEDS: Lactated Ringers 1,000 ML IV SCH ×2 (02:23→12:37)
[2020-03-22] MEDS ORDERED: Calcium Acetate 667 MG Cap PO ONE (09:01)
[2020-03-22] MEDS: Acetaminophen 325 MG Tab PO PRN ×3 (09:18→21:40)
[2020-03-22] MEDS: Pantoprazole 40 MG Vial IV SCH ×2 (09:18→21:22)
[2020-03-22] MEDS: Magnesium Sulfate/Water 2 GM/50 ML BAG IV ONE ×2 (09:20→09:22)
--- NOTE | 2020-03-22 09:59 | PCM.PN ---
- General Info Date of Service: 03/22/20 Admission Dx/Problem (Free Text): GI bleeding Subjective Update: Patient feels better today, has more energy and more alert. Passing flatus but no BM. No fevers overnight Functional Status: Reports: Pain Controlled, Ambulating, Urinating - Review of Systems General: Reports: No Symptoms HEENT: Reports: No Symptoms Pulmonary: Reports: No Symptoms Cardiovascular: Reports: No Symptoms Gastrointestinal: Reports: Flatus Genitourinary: Reports: No Symptoms Musculoskeletal: Reports: No Symptoms Skin: Reports: No Symptoms Neurological: Reports: No Symptoms Psychiatric: Reports: No Symptoms - Patient Data Vitals - Most Recent: Last Vital Signs Temp 98.4 F 03/22/20 08:31 Pulse 79 03/22/20 08:31 Resp 16 03/22/20 08:31 BP 128/75 03/22/20 08:31 Pulse Ox 99 03/22/20 08:31 Orthostatic Blood Pressure [ 106/51 Standing] Orthostatic Blood Pressure [ 110/56 Sitting] Orthostatic Blood Pressure [ 105/53 Supine] Weight - Most Recent: 81.465 kg I&O - Last 24 Hours: Intake & Output 03/21/20 03/22/20 03/22/20 22:59 06:59 14:59 Intake Total 360 1255 Output Total 1925 925 Balance -1565 330 Lab Results Last 24 Hours: Laboratory Results - last 24 hr 03/18/20 03/21/20 03/22/20 Range/Units 06:47 17:56 05:05 WBC (4.23-9.07) K/mm3 RBC (4.63-6.08) M/mm3 Hgb 8.8 L D (13.7-17.5) gm/dl Hct 26.1 L (40.1-51.0) % MCV (79.0-92.2) fl MCH (25.7-32.2) pg MCHC (32.2-35.5) g/dl RDW Std Deviation (35.1-43.9) fL Plt Count (163-337) K/mm3 MPV (9.4-12.3) fl Neut % (Auto) (34.0-67.9) % Lymph % (Auto) (21.8-53.1) % [place] % (Auto) (5.3-12.2) % Eos % (Auto) (0.8-7.0) Baso % (Auto) (0.1-1.2) % Neut # (Auto) (1.78-5.38) K/mm3 Lymph # (Auto) (1.32-3.57) K/mm3 [place] # (Auto) (0.30-0.82) K/mm3 Eos # (Auto) (0.04-0.54) K/mm3 Baso # (Auto) (0.01-0.08) K/mm3 Sodium 141 (136-145) mEq/L Potassium 3.8 (3.5-5.1) mEq/L Chloride 106 (98-107) mEq/L Carbon Dioxide 25 (21-32) mEq/L Anion Gap 13.8 (5-15) BUN 12 (7-18) mg/dL Creatinine 1.1 (0.7-1.3) mg/dL Est Cr Clr Drug Dosing 68.44 mL/min Estimated GFR (MDRD) > 60 (>60) mL/min BUN/Creatinine Ratio 10.9 L (14-18) Glucose 83 (74-106) mg/dL Calcium 8.1 L (8.5-10.1) mg/dL Phosphorus 2.5 L (2.6-4.7) mg/dL Magnesium 1.7 L (1.8-2.4) mg/dl Blood Type O POSITIVE Gel Antibody Screen Negative Crossmatch See Detail 03/22/20 Range/Units 05:50 WBC 5.94 (4.23-9.07) K/mm3 RBC 3.08 L (4.63-6.08) M/mm3 Hgb 9.1 L (13.7-17.5) gm/dl Hct 27.5 L (40.1-51.0) % MCV 89.3 (79.0-92.2) fl MCH 29.5 (25.7-32.2) pg MCHC 33.1 (32.2-35.5) g/dl RDW Std Deviation 42.4 (35.1-43.9) fL Plt Count 218 (163-337) K/mm3 MPV 11.2 (9.4-12.3) fl Neut % (Auto) 74.2 H (34.0-67.9) % Lymph % (Auto) 17.0 L (21.8-53.1) % [place] % (Auto) 8.2 (5.3-12.2) % Eos % (Auto) 0.3 L (0.8-7.0) Baso % (Auto) 0.3 (0.1-1.2) % Neut # (Auto) 4.40 (1.78-5.38) K/mm3 Lymph # (Auto) 1.01 L (1.32-3.57) K/mm3 [place] # (Auto) 0.49 (0.30-0.82) K/mm3 Eos # (Auto) 0.02 L (0.04-0.54) K/mm3 Baso # (Auto) 0.02 (0.01-0.08) K/mm3 Sodium (136-145) mEq/L Potassium (3.5-5.1) mEq/L Chloride (98-107) mEq/L Carbon Dioxide (21-32) mEq/L Anion Gap (5-15) BUN (7-18) mg/dL Creatinine (0.7-1.3) mg/dL Est Cr Clr Drug Dosing mL/min Estimated GFR (MDRD) (>60) mL/min BUN/Creatinine Ratio (14-18) Glucose (74-106) mg/dL Calcium (8.5-10.1) mg/dL Phosphorus (2.6-4.7) mg/dL Magnesium (1.8-2.4) mg/dl Blood Type Gel Antibody Screen Crossmatch Ricardo Results Last 24 Hours: Microbiology 03/19/20 15:00 Aerobic Blood Culture - Preliminary Blood - Venous - Lab Draw NO GROWTH AFTER 2 DAYS Anaerobic Blood Culture - Final 03/19/20 15:15 Aerobic Blood Culture - Preliminary Blood - Venous NO GROWTH AFTER 2 DAYS Anaerobic Blood Culture - Final Med Orders - Current: Current Medications Acetaminophen (Tylenol) 650 mg PO Q6H PRN PRN Reason: Fever Last Admin: 03/22/20 09:18 Dose: 650 mg Documented by: Lactated Ringer's (Ringers, Lactated) 1,000 mls @ 100 mls/hr IV ASDIRECTED [facility] Last Admin: 03/22/20 02:23 Dose: 100 mls/hr Documented by: Magnesium Sulfate (Magnesium Sulfate In Water Premix) 2 gm in 50 mls @ 25 mls/hr IV ONETIME ONE Stop: 03/22/20 11:00 Last Admin: 03/22/20 09:22 Dose: 25 mls/hr Documented by: Ondansetron HCl (Zofran) 4 mg IV Q4H PRN PRN Reason: Nausea/Vomiting Pantoprazole Sodium (Protonix Iv) 40 mg IV BID [facility] Last Admin: 03/22/20 09:18 Dose: 40 mg Documented by: Sodium Phosphate (Neutra-Phos) 500 mg PO ACLUNCH [facility] Stop: 03/22/20 10:01 Sodium Phosphate (Neutra-Phos) 500 mg PO ACDINNER [facility] Stop: 03/22/20 16:01 Discontinued Medications Calcium Acetate (Phoslo) 667 mg PO ONETIME ONE Stop: 03/22/20 09:02 Epinephrine HCl (Adrenalin) Confirm Administered Dose 1 mg .ROUTE .STK-MED ONE Stop: 03/20/20 17:33 Last Admin: 03/20/20 17:47 Dose: 3 mg Documented by: Fentanyl (Sublimaze) Confirm Administered Dose 100 mcg .ROUTE .STK-MED ONE Stop: 03/19/20 07:38 Fentanyl (Sublimaze) Confirm Administered Dose 100 mcg .ROUTE .STK-MED ONE Stop: 03/20/20 15:42 Glycopyrrolate (Robinul) Confirm Administered Dose 0.4 mg .ROUTE .STK-MED ONE Stop: 03/20/20 16:12 Sodium Chloride (Normal Saline) 1,000 mls @ 999 mls/hr IV ASDIRECTED [facility] Last Admin: 03/18/20 07:23 Dose: 999 mls/hr Documented by: Dextrose/Sodium Chloride (Dextrose 5%-Normal Saline) 1,000 mls @ 150 mls/hr IV ASDIRECTED [facility] Last Admin: 03/18/20 08:49 Dose: 150 mls/hr Documented by: Lactated Ringer's (Ringers, Lactated) 1,000 mls @ 125 mls/hr IV ASDIRECTED [facility] Last Admin: 03/19/20 11:31 Dose: 125 mls/hr Documented by: Pantoprazole Sodium 40 mg/ (Sodium Chloride) 100 mls @ 200 mls/hr IV BID [facility] Last Admin: 03/18/20 15:19 Dose: Not Given Documented by: Lidocaine HCl (Xylocaine-Mpf 1%) Confirm Administered Dose 4 mls @ as directed .ROUTE .STK-MED ONE Stop: 03/19/20 07:41 Lidocaine HCl (Xylocaine-Mpf 1%) Confirm Administered Dose 4 mls @ as directed .ROUTE .STK-MED ONE Stop: 03/20/20 15:48 Lactated Ringer's (Ringers, Lactated) Confirm Administered Dose 1,000 mls @ as directed .ROUTE .STK-MED ONE Stop: 03/20/20 16:46 Sodium Chloride (Normal Saline) 250 mls @ 100 mls/hr IV ASDIRECTED [facility] Potassium Chloride 10 meq/ (Premix) 100 mls @ 100 mls/hr IV Q1H [facility] Stop: 03/21/20 14:29 Last Admin: 03/21/20 16:27 Dose: 100 mls/hr Documented by: Ketamine HCl (Ketalar) Confirm Administered Dose 500 mg .ROUTE .STK-MED ONE Stop: 03/20/20 15:39 Midazolam HCl (Versed 1 Mg/Ml) Confirm Administered Dose 4 mg .ROUTE .STK-MED ONE Stop: 03/20/20 15:49 Midazolam HCl (Versed 1 Mg/Ml) Confirm Administered Dose 2 mg .ROUTE .STK-MED ONE Stop: 03/20/20 18:50 Miscellaneous Medication (Phenylephrine 1 Mg/10 Ml-Ns) Confirm Administered Dose 1 mg .ROUTE .STK-MED ONE Stop: 03/20/20 15:56 Polyethylene Glycol/Electrolytes (Golytely) 4,000 ml PO ONETIME ONE Stop: 03/18/20 17:01 Last Admin: 03/18/20 18:06 Dose: 4,000 ml Documented by: Propofol (Diprivan 20 Ml) Confirm Administered Dose 600 mg .ROUTE .STK-MED ONE Stop: 03/19/20 07:38 Propofol (Diprivan 20 Ml) Confirm Administered Dose 200 mg .ROUTE .STK-MED ONE Stop: 03/19/20 08:51 Propofol (Diprivan 20 Ml) Confirm Administered Dose 400 mg .ROUTE .STK-MED ONE Stop: 03/20/20 15:39 Propofol (Diprivan 20 Ml) Confirm Administered Dose 200 mg .ROUTE .STK-MED ONE Stop: 03/20/20 16:25 Propofol (Diprivan 20 Ml) Confirm Administered Dose 200 mg .ROUTE .STK-MED ONE Stop: 03/20/20 16:41 Propofol (Diprivan 20 Ml) Confirm Administered Dose 200 mg .ROUTE .STK-MED ONE Stop: 03/20/20 17:37 Propofol (Diprivan 20 Ml) Confirm Administered Dose 200 mg .ROUTE .STK-MED ONE Stop: 03/20/20 18:05 - Exam General: Alert, Oriented, Cooperative Lungs: Clear to Auscultation, Normal Respiratory Effort Cardiovascular: Regular Rate, Regular Rhythm, No Murmurs GI/Abdominal Exam: Soft, No Organomegaly, No Distention, No Abnormal Bruit, No Mass, Tender (slight tenderness to palpation in RLQ, LLQ) Sepsis Event Note - Evaluation Sepsis Screening Result: No Definite Risk - Focused Exam Vital Signs: Vital Signs Temp Pulse Resp BP Pulse Ox 03/22/20 08:31 98.4 F 79 16 128/75 99 03/22/20 04:35 98.4 F 82 13 131/73 95 - Problem List Review Problem List Initiated/Reviewed/Updated: No - My Orders Last 24 Hours: My Active Orders 03/21/20 10:47 Antiembolic Devices [RC] PER UNIT ROUTINE SCD [Sequential Compression Device] [OM.PC] Routine 03/22/20 Breakfast Clear Liquid Diet [DIET] 03/22/20 09:01 Magnesium Sulfate/Water [Magnesium Sulfate in Water Premix] 2 gm in 50 ml IV ONETIME 03/22/20 10:00 Phosphorus #1 [Neutra-Phos] 500 mg PO ACLUNCH 03/22/20 16:00 Phosphorus #1 [Neutra-Phos] 500 mg PO ACDINNER 03/22/20 17:00 HEMOGLOBIN/HEMATOCRIT,HH [HEME] Routine 03/23/20 05:11 CBC WITH AUTO DIFF [HEME] AM - Assessment Assessment:: Diverticular bleeding, s/p colonoscopy with epinephrine injection and Endoclip placement 03/20. Had 2 U PRBCs yesterday, Hgb now stable 9.1 this AM, was 8.8 yesterday. - Plan Plan:: - Start CLD, continue gentle hydration - Recheck H/H at 5PM today - Will continue to monitor BMs. He will probably pass 1-2 Bloody BMs due to residual blood at the minimum. - If H/H stabilizes and no concern for re-bleeding, then will likely dc home tomorrow
[2020-03-22] MEDS ORDERED: Phosphorus #1 250 MG Tab PO SCH ×2 (10:00→16:00)
--- NOTE | 2020-03-22 18:23 | PCM.SN.2 ---
- Free Text/Narrative Note: Patient's Hgb is 8.8, which is stable from 9.1 this AM. We will continue CLD, turn down IVF to 50 mL/hr and obtain CBC and BMP with Phos and Mag in the AM. He had fever to 100.9 this afternoon, received Tylenol.
[2020-03-22] MEDS ORDERED: Lactated Ringers 1,000 ML IV SCH (20:15)
[2020-03-23] MEDS: Acetaminophen 325 MG Tab PO PRN ×2 (04:28→12:59)
[2020-03-23] MEDS ORDERED: Potassium Bicarbonate/Cit Ac 20 MEQ Effervescent Tab PO ONE (08:20)
[2020-03-23] MEDS: Pantoprazole 40 MG Vial IV SCH (10:22)
--- NOTE | 2020-03-23 17:35 | PCM.PN ---
- General Info Date of Service: 03/23/20 Admission Dx/Problem (Free Text): Diverticular bleeding Subjective Update: Has headache and chills today. Had one bowel movement with old blood. Has a fever to 100.8. No other issues. Functional Status: Reports: Pain Controlled, Tolerating Diet, Ambulating, Urinating - Review of Systems General: Reports: No Symptoms HEENT: Reports: No Symptoms Pulmonary: Reports: No Symptoms Cardiovascular: Reports: No Symptoms Gastrointestinal: Reports: No Symptoms, Melena Genitourinary: Reports: No Symptoms Musculoskeletal: Reports: No Symptoms Skin: Reports: No Symptoms Neurological: Reports: No Symptoms Psychiatric: Reports: No Symptoms - Patient Data Vitals - Most Recent: Last Vital Signs Temp 100.8 F H 03/23/20 12:59 Pulse 86 03/23/20 11:24 Resp 16 03/23/20 11:24 BP 129/67 03/23/20 11:24 Pulse Ox 97 03/23/20 11:24 Orthostatic Blood Pressure [ 106/51 Standing] Orthostatic Blood Pressure [ 110/56 Sitting] Orthostatic Blood Pressure [ 105/53 Supine] Weight - Most Recent: 81.692 kg I&O - Last 24 Hours: Intake & Output 03/23/20 03/23/20 03/23/20 06:59 14:59 22:59 Intake Total 1156 Output Total 1050 Balance 106 Lab Results Last 24 Hours: Laboratory Results - last 24 hr 03/23/20 03/23/20 Range/Units 05:11 05:11 WBC 3.73 L (4.23-9.07) K/mm3 RBC 2.92 L (4.63-6.08) M/mm3 Hgb 8.6 L (13.7-17.5) gm/dl Hct 25.6 L (40.1-51.0) % MCV 87.7 (79.0-92.2) fl MCH 29.5 (25.7-32.2) pg MCHC 33.6 (32.2-35.5) g/dl RDW Std Deviation 39.8 (35.1-43.9) fL Plt Count 218 (163-337) K/mm3 MPV 10.8 (9.4-12.3) fl Neut % (Auto) 76.1 H (34.0-67.9) % Lymph % (Auto) 11.8 L (21.8-53.1) % Beckham % (Auto) 11.8 (5.3-12.2) % Eos % (Auto) 0 L (0.8-7.0) Baso % (Auto) 0.3 (0.1-1.2) % Neut # (Auto) 2.84 (1.78-5.38) K/mm3 Lymph # (Auto) 0.44 L (1.32-3.57) K/mm3 Beckham # (Auto) 0.44 (0.30-0.82) K/mm3 Eos # (Auto) 0.00 L (0.04-0.54) K/mm3 Baso # (Auto) 0.01 (0.01-0.08) K/mm3 Sodium 135 L (136-145) mEq/L Potassium 3.4 L (3.5-5.1) mEq/L Chloride 101 (98-107) mEq/L Carbon Dioxide 23 (21-32) mEq/L Anion Gap 14.4 (5-15) BUN 10 (7-18) mg/dL Creatinine 1.1 (0.7-1.3) mg/dL Est Cr Clr Drug Dosing 68.44 mL/min Estimated GFR (MDRD) > 60 (>60) mL/min BUN/Creatinine Ratio 9.1 L (14-18) Glucose 106 (74-106) mg/dL Calcium 7.8 L (8.5-10.1) mg/dL Phosphorus 3.4 (2.6-4.7) mg/dL Magnesium 1.8 (1.8-2.4) mg/dl Ricardo Results Last 24 Hours: Microbiology 03/19/20 15:00 Aerobic Blood Culture - Preliminary Blood - Venous - Lab Draw NO GROWTH AFTER 4 DAYS Anaerobic Blood Culture - Final 03/19/20 15:15 Aerobic Blood Culture - Preliminary Blood - Venous NO GROWTH AFTER 4 DAYS Anaerobic Blood Culture - Final Med Orders - Current: Current Medications Acetaminophen (Tylenol) 650 mg PO Q6H PRN PRN Reason: Fever Last Admin: 03/23/20 12:59 Dose: 650 mg Documented by: Ondansetron HCl (Zofran) 4 mg IV Q4H PRN PRN Reason: Nausea/Vomiting Pantoprazole Sodium (Protonix Iv) 40 mg IV BID [facility] Last Admin: 03/23/20 10:22 Dose: 40 mg Documented by: Discontinued Medications Calcium Acetate (Phoslo) 667 mg PO ONETIME ONE Stop: 03/22/20 09:02 Last Admin: 03/22/20 10:54 Dose: Not Given Documented by: Epinephrine HCl (Adrenalin) Confirm Administered Dose 1 mg .ROUTE .STK-MED ONE Stop: 03/20/20 17:33 Last Admin: 03/20/20 17:47 Dose: 3 mg Documented by: Fentanyl (Sublimaze) Confirm Administered Dose 100 mcg .ROUTE .STK-MED ONE Stop: 03/19/20 07:38 Fentanyl (Sublimaze) Confirm Administered Dose 100 mcg .ROUTE .ST[facility] ONE Stop: 03/20/20 15:42 Glycopyrrolate (Robinul) Confirm Administered Dose 0.4 mg .ROUTE .STK-MED ONE Stop: 03/20/20 16:12 Sodium Chloride (Normal Saline) 1,000 mls @ 999 mls/hr IV ASDIRECTED [facility] Last Admin: 03/18/20 07:23 Dose: 999 mls/hr Documented by: Dextrose/Sodium Chloride (Dextrose 5%-Normal Saline) 1,000 mls @ 150 mls/hr IV ASDIRECTED [facility] Last Admin: 03/18/20 08:49 Dose: 150 mls/hr Documented by: Lactated Ringer's (Ringers, Lactated) 1,000 mls @ 125 mls/hr IV ASDIRECTED [facility] Last Admin: 03/19/20 11:31 Dose: 125 mls/hr Documented by: Pantoprazole Sodium 40 mg/ (Sodium Chloride) 100 mls @ 200 mls/hr IV BID [facility] Last Admin: 03/18/20 15:19 Dose: Not Given Documented by: Lidocaine HCl (Xylocaine-Mpf 1%) Confirm Administered Dose 4 mls @ as directed .ROUTE .STK-MED ONE Stop: 03/19/20 07:41 Lactated Ringer's (Ringers, Lactated) 1,000 mls @ 50 mls/hr IV ASDIRECTED [facility] Last Admin: 03/22/20 12:37 Dose: 100 mls/hr Documented by: Lidocaine HCl (Xylocaine-Mpf 1%) Confirm Administered Dose 4 mls @ as directed .ROUTE .STK-MED ONE Stop: 03/20/20 15:48 Lactated Ringer's (Ringers, Lactated) Confirm Administered Dose 1,000 mls @ as directed .ROUTE .STK-MED ONE Stop: 03/20/20 16:46 Sodium Chloride (Normal Saline) 250 mls @ 100 mls/hr IV ASDIRECTED [facility] Potassium Chloride 10 meq/ (Premix) 100 mls @ 100 mls/hr IV Q1H [facility] Stop: 03/21/20 14:29 Last Admin: 03/21/20 16:27 Dose: 100 mls/hr Documented by: Magnesium Sulfate (Magnesium Sulfate In Water Premix) 2 gm in 50 mls @ 25 mls/hr IV ONETIME ONE Stop: 03/22/20 11:00 Last Admin: 03/22/20 09:22 Dose: 25 mls/hr Documented by: Lactated Ringer's (Ringers, Lactated) 1,000 mls @ 50 mls/hr IV ASDIRECTED [facility] Last Admin: 03/23/20 04:28 Dose: 50 mls/hr Documented by: Ketamine HCl (Ketalar) Confirm Administered Dose 500 mg .ROUTE .STK-MED ONE Stop: 03/20/20 15:39 Midazolam HCl (Versed 1 Mg/Ml) Confirm Administered Dose 4 mg .ROUTE .STK-MED ONE Stop: 03/20/20 15:49 Midazolam HCl (Versed 1 Mg/Ml) Confirm Administered Dose 2 mg .ROUTE .STK-MED ONE Stop: 03/20/20 18:50 Miscellaneous Medication (Phenylephrine 1 Mg/10 Ml-Ns) Confirm Administered Dose 1 mg .ROUTE .STK-MED ONE Stop: 03/20/20 15:56 Polyethylene Glycol/Electrolytes (Golytely) 4,000 ml PO ONETIME ONE Stop: 03/18/20 17:01 Last Admin: 03/18/20 18:06 Dose: 4,000 ml Documented by: Potassium Bicarbonate (Effer-K) 40 meq PO ONETIME ONE Stop: 03/23/20 08:21 Last Admin: 03/23/20 10:22 Dose: 40 meq Documented by: Propofol (Diprivan 20 Ml) Confirm Administered Dose 600 mg .ROUTE .STK-MED ONE Stop: 03/19/20 07:38 Propofol (Diprivan 20 Ml) Confirm Administered Dose 200 mg .ROUTE .STK-MED ONE Stop: 03/19/20 08:51 Propofol (Diprivan 20 Ml) Confirm Administered Dose 400 mg .ROUTE .STK-MED ONE Stop: 03/20/20 15:39 Propofol (Diprivan 20 Ml) Confirm Administered Dose 200 mg .ROUTE .STK-MED ONE Stop: 03/20/20 16:25 Propofol (Diprivan 20 Ml) Confirm Administered Dose 200 mg .ROUTE .STK-MED ONE Stop: 03/20/20 16:41 Propofol (Diprivan 20 Ml) Confirm Administered Dose 200 mg .ROUTE .STK-MED ONE Stop: 03/20/20 17:37 Propofol (Diprivan 20 Ml) Confirm Administered Dose 200 mg .ROUTE .STK-MED ONE Stop: 03/20/20 18:05 Sodium Phosphate (Neutra-Phos) 500 mg PO ACLUNCH [facility] Stop: 03/22/20 10:01 Last Admin: 03/22/20 10:37 Dose: 500 mg Documented by: Sodium Phosphate (Neutra-Phos) 500 mg PO ACDINNER [facility] Stop: 03/22/20 16:01 Last Admin: 03/22/20 15:53 Dose: 500 mg Documented by: - Exam General: Alert, Oriented, Cooperative Lungs: Clear to Auscultation, Normal Respiratory Effort Cardiovascular: Regular Rate, Regular Rhythm GI/Abdominal Exam: Soft, Non-Tender, No Organomegaly, No Distention Sepsis Event Note - Evaluation Sepsis Screening Result: No Definite Risk - Focused Exam Vital Signs: Vital Signs Temp Pulse Resp BP Pulse Ox 03/23/20 12:59 100.8 F H 03/23/20 11:24 100.8 F H 86 16 129/67 97 03/23/20 10:20 100.2 F 78 18 141/73 H 95 - Problem List Review Problem List Initiated/Reviewed/Updated: No - My Orders Last 24 Hours: My Active Orders 03/23/20 Lunch Regular Diet [DIET] 03/23/20 13:17 Ready for Discharge [RC] PER UNIT ROUTINE - Assessment Assessment:: Diverticular bleeding, s/p colonoscopy with epinephrine injection and Endoclip placement 03/20. Had 2 U PRBCs 03/19, Hgb now stable 8.8 --> 9.1 --> 8.8 --> 8.6. No new signs of bleeding. - Plan Plan:: - reg diet, dc IVF, Tylenol for fevers - will discharge the patient to home today. No new signs of bleeding. patient will continue monitoring for COvid symptoms at home. - He is agreeable to this plan.
--- NOTE | 2020-03-23 17:43 | PCM.DCSUM1 ---
Discharge Summary - Hospital Course Free Text/Narrative:: Patient was admitted 03/18 for acute GI bleeding. Had EGD/Colonoscopy on 03/19 that was normal. patient rebled and had a repeat colonoscopy on 03/20 and was treated with endoclip and epinephrine for diverticular bleeding. He received 2 U PRBCs on 03/20 for Hgb of 6.4. His bleeding stopped and Hgb remained stable for the next 36 hrs. I think his bleeding has ceased now. Patient continued to have fevers and chills likely due to his active covid-19 status. He will be discharged to home. He will monitor bleeding and covid symptoms at home. Diagnosis: Stroke: No - Discharge Data Discharge Date: 03/23/20 Discharge Disposition: Home, Self-Care 01 Condition: Good - Referral to Home Health Primary Care Physician: Bart Aly MD - Patient Instructions Diet: Heart Healthy Diet (high fiber diet) Activity: As Tolerated Driving: May Drive Today Showering/Bathing: May Shower Other/Special Instructions: - continue self isolation at home due to testing positive for Covid-19 and having fevers. Need 9 more days to reach a total of 14 days. - monitor fevers at home. Use Tylenol for temperature above 100.4 F. - monitor oxygen saturations at home. If your saturations fall below 90% consistently, go to the emergency department for evaluation and possible treatment. - if bloody stools recur, seek medical attention. - Take iron supplemets for 30 days. These are available over the counter. - Discharge Plan *PRESCRIPTION DRUG MONITORING PROGRAM REVIEWED*: Not Applicable *COPY OF PRESCRIPTION DRUG MONITORING REPORT IN PATIENT SHAILA: Not Applicable Home Medications: Home Meds Omeprazole Magnesium [Prilosec Otc] 20 mg PO ASDIRECTED PRN 03/18/20 [History] Oxygen Therapy Mode: Room Air Patient Handouts: COVID-19, Sepsis, Diagnosis, Adult, COVID-19: How to Protect Yourself and Others - CDC, Lower Gastrointestinal Bleeding Forms: ED Department Discharge Referrals: Bart Aly MD [Primary Care Provider] - 03/31/20 1:45 pm - Discharge Summary/Plan Comment DC Time >30 min.: Yes - General Info Date of Service: 03/23/20 Admission Dx/Problem (Free Text: Diverticular bleeding Subjective Update: Has headache and chills today. Had one bowel movement with old blood. Has a fever to 100.8. No other issues. Functional Status: Reports: Tolerating Diet, Ambulating, Urinating - Review of Systems General: Reports: No Symptoms HEENT: Reports: No Symptoms Pulmonary: Reports: No Symptoms Cardiovascular: Reports: No Symptoms Gastrointestinal: Reports: Melena Genitourinary: Reports: No Symptoms Musculoskeletal: Reports: No Symptoms Skin: Reports: No Symptoms Neurological: Reports: No Symptoms Psychiatric: Reports: No Symptoms - Patient Data Vitals - Most Recent: Last Vital Signs Temp 100.8 F H 03/23/20 12:59 Pulse 86 03/23/20 11:24 Resp 16 03/23/20 11:24 BP 129/67 03/23/20 11:24 Pulse Ox 97 03/23/20 11:24 Orthostatic Blood Pressure [ 106/51 Standing] Orthostatic Blood Pressure [ 110/56 Sitting] Orthostatic Blood Pressure [ 105/53 Supine] Weight - Most Recent: 81.692 kg I&O - Last 24 hours: Intake & Output 03/23/20 03/23/20 03/23/20 06:59 14:59 22:59 Intake Total 1156 Output Total 1050 Balance 106 Lab Results - Last 24 hrs: Laboratory Results - last 24 hr 03/23/20 03/23/20 Range/Units 05:11 05:11 WBC 3.73 L (4.23-9.07) K/mm3 RBC 2.92 L (4.63-6.08) M/mm3 Hgb 8.6 L (13.7-17.5) gm/dl Hct 25.6 L (40.1-51.0) % MCV 87.7 (79.0-92.2) fl MCH 29.5 (25.7-32.2) pg MCHC 33.6 (32.2-35.5) g/dl RDW Std Deviation 39.8 (35.1-43.9) fL Plt Count 218 (163-337) K/mm3 MPV 10.8 (9.4-12.3) fl Neut % (Auto) 76.1 H (34.0-67.9) % Lymph % (Auto) 11.8 L (21.8-53.1) % Gregg % (Auto) 11.8 (5.3-12.2) % Eos % (Auto) 0 L (0.8-7.0) Baso % (Auto) 0.3 (0.1-1.2) % Neut # (Auto) 2.84 (1.78-5.38) K/mm3 Lymph # (Auto) 0.44 L (1.32-3.57) K/mm3 Gregg # (Auto) 0.44 (0.30-0.82) K/mm3 Eos # (Auto) 0.00 L (0.04-0.54) K/mm3 Baso # (Auto) 0.01 (0.01-0.08) K/mm3 Sodium 135 L (136-145) mEq/L Potassium 3.4 L (3.5-5.1) mEq/L Chloride 101 (98-107) mEq/L Carbon Dioxide 23 (21-32) mEq/L Anion Gap 14.4 (5-15) BUN 10 (7-18) mg/dL Creatinine 1.1 (0.7-1.3) mg/dL Est Cr Clr Drug Dosing 68.44 mL/min Estimated GFR (MDRD) > 60 (>60) mL/min BUN/Creatinine Ratio 9.1 L (14-18) Glucose 106 (74-106) mg/dL Calcium 7.8 L (8.5-10.1) mg/dL Phosphorus 3.4 (2.6-4.7) mg/dL Magnesium 1.8 (1.8-2.4) mg/dl S[facility] Results - Last 24 hrs: Microbiology 03/19/20 15:00 Aerobic Blood Culture - Preliminary Blood - Venous - Lab Draw NO GROWTH AFTER 4 DAYS Anaerobic Blood Culture - Final 03/19/20 15:15 Aerobic Blood Culture - Preliminary Blood - Venous NO GROWTH AFTER 4 DAYS Anaerobic Blood Culture - Final Med Orders - Current: Current Medications Acetaminophen (Tylenol) 650 mg PO Q6H PRN PRN Reason: Fever Last Admin: 03/23/20 12:59 Dose: 650 mg Documented by: Ondansetron HCl (Zofran) 4 mg IV Q4H PRN PRN Reason: Nausea/Vomiting Pantoprazole Sodium (Protonix Iv) 40 mg IV BID [facility] Last Admin: 03/23/20 10:22 Dose: 40 mg Documented by: Discontinued Medications Calcium Acetate (Phoslo) 667 mg PO ONETIME ONE Stop: 03/22/20 09:02 Last Admin: 03/22/20 10:54 Dose: Not Given Documented by: Epinephrine HCl (Adrenalin) Confirm Administered Dose 1 mg .ROUTE [facility] ONE Stop: 03/20/20 17:33 Last Admin: 03/20/20 17:47 Dose: 3 mg Documented by: Fentanyl (Sublimaze) Confirm Administered Dose 100 mcg .ROUTE [facility] ONE Stop: 03/19/20 07:38 Fentanyl (Sublimaze) Confirm Administered Dose 100 mcg .ROUTE [facility] ONE Stop: 03/20/20 15:42 Glycopyrrolate (Robinul) Confirm Administered Dose 0.4 mg .ROUTE .[facility] ONE Stop: 03/20/20 16:12 Sodium Chloride (Normal Saline) 1,000 mls [facility] Last Admin: 03/18/20 07:23 Dose: 999 mls/hr Documented by: Dextrose/Sodium Chloride (Dextrose 5%-Normal Saline) 1,000 mls @ [facility] Last Admin: 03/18/20 08:49 Dose: 150 mls/hr Documented by: Lactated Ringer's (Ringers, Lactated) 1,000 mls @ 125 [facility] Last Admin: 03/19/20 11:31 Dose: 125 mls/hr Documented by: Pantoprazole Sodium 40 mg/ (Sodium Chloride) 100 mls @ 200 mls/hr IV BID [facility] Last Admin: 03/18/20 15:19 Dose: Not Given Documented by: Lidocaine HCl (Xylocaine-Mpf 1%) Confirm Administered Dose 4 mls @ as directed .ROUTE [facility] ONE Stop: 03/19/20 07:41 Lactated Ringer's (Ringers, Lactated) 1,000 mls @ 50 mls/hr IV ASDIRECTED [facility] Last Admin: 03/22/20 12:37 Dose: 100 mls/hr Documented by: Lidocaine HCl (Xylocaine-Mpf 1%) Confirm Administered Dose 4 mls @ as directed .ROUTE .[facility] ONE Stop: 03/20/20 15:48 Lactated Ringer's (Ringers, Lactated) Confirm Administered Dose 1,000 mls @ as directed .ROUTE .STK-MED ONE Stop: 03/20/20 16:46 Sodium Chloride (Normal Saline) 250 mls @ 100 mls/hr IV ASDIRECTED [facility] Potassium Chloride 10 meq/ (Premix) 100 mls @ 100 mls/hr IV Q1H [facility] Stop: 03/21/20 14:29 Last Admin: 03/21/20 16:27 Dose: 100 mls/hr Documented by: Magnesium Sulfate (Magnesium Sulfate In Water Premix) 2 gm in 50 mls @ 25 mls/hr IV ONETIME ONE Stop: 03/22/20 11:00 Last Admin: 03/22/20 09:22 Dose: 25 mls/hr Documented by: Lactated Ringer's (Ringers, Lactated) 1,000 mls @ 50 mls/hr IV ASDIRECTED [facility] Last Admin: 03/23/20 04:28 Dose: 50 mls/hr Documented by: Ketamine HCl (Ketalar) Confirm Administered Dose 500 mg .ROUTE .STK-MED ONE Stop: 03/20/20 15:39 Midazolam HCl (Versed 1 Mg/Ml) Confirm Administered Dose 4 mg .ROUTE .STK-MED ONE Stop: 03/20/20 15:49 Midazolam HCl (Versed 1 Mg/Ml) Confirm Administered Dose 2 mg .ROUTE .STK-MED ONE Stop: 03/20/20 18:50 Miscellaneous Medication (Phenylephrine 1 Mg/10 Ml-Ns) Confirm Administered Dose 1 mg .ROUTE .STK-MED ONE Stop: 03/20/20 15:56 Polyethylene Glycol/Electrolytes (Golytely) 4,000 ml PO ONETIME ONE Stop: 03/18/20 17:01 Last Admin: 03/18/20 18:06 Dose: 4,000 ml Documented by: Potassium Bicarbonate (Effer-K) 40 meq PO ONETIME ONE Stop: 03/23/20 08:21 Last Admin: 03/23/20 10:22 Dose: 40 meq Documented by: Propofol (Diprivan 20 Ml) Confirm Administered Dose 600 mg .ROUTE .STK-MED ONE Stop: 03/19/20 07:38 Propofol (Diprivan 20 Ml) Confirm Administered Dose 200 mg .ROUTE .STK-MED ONE Stop: 03/19/20 08:51 Propofol (Diprivan 20 Ml) Confirm Administered Dose 400 mg .ROUTE .STK-MED ONE Stop: 03/20/20 15:39 Propofol (Diprivan 20 Ml) Confirm Administered Dose 200 mg .ROUTE .STK-MED ONE Stop: 03/20/20 16:25 Propofol (Diprivan 20 Ml) Confirm Administered Dose 200 mg .ROUTE .STK-MED ONE Stop: 03/20/20 16:41 Propofol (Diprivan 20 Ml) Confirm Administered Dose 200 mg .ROUTE .STK-MED ONE Stop: 03/20/20 17:37 Propofol (Diprivan 20 Ml) Confirm Administered Dose 200 mg .ROUTE .STK-MED ONE Stop: 03/20/20 18:05 Sodium Phosphate (Neutra-Phos) 500 mg PO ACLUNCH [facility] Stop: 03/22/20 10:01 Last Admin: 03/22/20 10:37 Dose: 500 mg Documented by: Sodium Phosphate (Neutra-Phos) 500 mg PO ACDINNER [facility] Stop: 03/22/20 16:01 Last Admin: 03/22/20 15:53 Dose: 500 mg Documented by: - Exam General: Reports: Alert, Oriented, Cooperative Lungs: Reports: Clear to Auscultation, Normal Respiratory Effort Cardiovascular: Reports: Regular Rate, Regular Rhythm, No Murmurs GI/Abdominal Exam: Soft, Non-Tender, No Organomegaly, No Distention *Q Meaningful Use (DIS) - VTE *Q VTE Pharmacological Contraindications *Q: Active Hemorrhage
--- NOTE | 2020-03-27 15:49 | PCM.SN.2 ---
- Free Text/Narrative Note: Addendum to the Colonoscopy from 03/19/2020: A 4 mm pedunculated polyp was removed from the sigmoid colon with a hot snare. EBL was minimal.
== END 2020-03-23 16:30 | disposition home or self-care (01) | DRG 226 ==
LOC: JD.ED 06:20 → JD.MS 09:34
PROVIDERS: ADMIT Surgery; ATTEND Surgery
PROC: 0DBN8ZZ Excision of Sigmoid Colon, Via Natural or Artificial Opening Endoscopic (ICD-10-PCS; 2020-03-19)
PROC: 0DJ08ZZ Inspection of Upper Intestinal Tract, Via Natural or Artificial Opening Endoscopic (ICD-10-PCS; 2020-03-19)
PROC: 06LY4CC Occlusion of Hemorrhoidal Plexus with Extraluminal Device, Percutaneous Endoscopic Approach (ICD-10-PCS; 2020-03-19)
PROC: 30233N1 Transfusion of Nonautologous Red Blood Cells into Peripheral Vein, Percutaneous Approach (ICD-10-PCS; principal; 2020-03-20)
PROC: 0W3P8ZZ Control Bleeding in Gastrointestinal Tract, Via Natural or Artificial Opening Endoscopic (ICD-10-PCS; 2020-03-20)
DX: K57.31 Diverticulosis of large intestine without perforation or abscess with bleeding (principal); H54.7 Unspecified visual loss; U07.1 COVID-19; Z79.899 Other long term (current) drug therapy; Z96.653 Presence of artificial knee joint, bilateral; Z87.891 Personal history of nicotine dependence; K21.9 Gastro-esophageal reflux disease without esophagitis; K64.2 Third degree hemorrhoids; K63.5 Polyp of colon; K57.11 Diverticulosis of small intestine without perforation or abscess with bleeding; K20.90 Esophagitis, unspecified without bleeding
CPT/HCPCS: 00813; 36410; 36415; 36430; 71045; 71045-26; 80048; 80053; 83735; 84100; 85014; 85018; 85025; 85027; 85610; 85730; 86140; 86850; 86900; 86901; 86922; 87040; 87338; 93005; 99285; 99285-25; A9270-GY; C9113; J0171; J2001; J2250; J2370; J2704; J3010; J3475; J3480; J7030; J7042; J7120; P9016; U0002